=== PATIENT | female | born 1960 | race Caucasian/White ===

== ENCOUNTER 2019-06-29 12:01 | Outpatient (CLI) | payer MEDICARE, MEDICAID, SELFPAY | END 2019-06-29 12:02 | disposition home or self-care (01) | LOC: LAB 12:06 | PROVIDERS: Visit Provider Surgery | DX: R19.7 Diarrhea, unspecified (principal) | CPT/HCPCS: 83630; 87177; 87209; 87493; 87506 ==

== ENCOUNTER 2019-08-03 07:20 | Day surgery (SDC) | payer MEDICARE, MEDICAID, SELFPAY ==
[2019-08-02 09:33] VITALS: BMI 30.9
[2019-08-03 07:34] VITALS: BP 154/77; PULSE 78; RESP 18; TEMP 35.7; O2SAT 98
[2019-08-03] MEDS: sodium chloride 0.9% 1,000 ML 30 ML IV (07:47)
--- NOTE | 2019-08-03 08:13 | W.PM.OPSUD ---
Surgery/Procedure H&P Update DATE OF PROCEDURE: August 03, 2019 DATE H&P PERFORMED: 07/19/19 H&P UPDATE INFORMATION: I have reviewed H&P completed within last 30 days, I have examined patient prior to procedure and No changes to prior documentation PREOP DIAGNOSIS: Chronic diarrhea PLANNED PROCEDURE: Operation Date: 08/03/19 08:15 Proposed Procedures p Colonoscopy 62081 chronic diarrhe K52.9(Not Applicable) - Zafar Sales MD
--- NOTE | 2019-08-03 08:16 | ANES.PREANE2 ---
Pre-Anesthetic Assessment Pre-Anesthetic Assessment: Height/Weight: Height 1.63 m Weight 81.647 kg Temp Pulse Resp BP Pulse Ox 96.3 F L 78 18 154/77 98 08/03/19 07:34 08/03/19 07:34 08/03/19 07:34 08/03/19 07:34 08/03/19 07:34 Preop Diagnosis: Chronic diarrhea Proposed Procedure: Operation Date: 08/03/19 08:15 Proposed Procedures p Colonoscopy 99435 chronic diarrhe K52.9(Not Applicable) - Zafar Sales MD Was Beta Luis Enrique taken within 24 hours: N/A Last intake: Intake Last Liquid Date 08/02/19 Last Liquid Time 21:00 Last Solid Date 08/01/19 Social: Social History: Tobacco Packs per day: 2 Exam: Pre-Anes Outpt Exam: alert, oriented x 3 and regular rate & rhythm Additional Exam Findings (including area of procedure): decreased in bases Airway: Submandibular: WNL Cervical ROM: WNL MP: 2 Dentition: False History/ROS: No significant history except as noted and No significant complaints Pulmonary: Pulmonary: Asthma, COPD and SOB CV/HEM: CV/HEM: CAD and HTN : : None reported Hepatic: Hepatic: None reported GI: GI: None reported Metabolic: Metabolic: None reported Musc/skel: Musc/skel: None reported Neuropsych: Neuropsych: Anxiety Anesthetic Plan: ASA status: 4 Anesthesia: Anesthesia Evaluation and MAC Risk of > 500 ml blood loss (7ml/kg in children): No Meds/Allergies Current Medications: Current Medications Generic Name Dose Route Start Last Admin Trade Name Freq PRN Reason Stop Dose Admin Sodium Chloride 1,000 mls @ 30 ml s/hr 08/03/19 07:30 08/03/19 07:47 Sodium Chloride 0.9% IV 08/04/19 07:29 30 mls/hr .Q24H PRICE Administration PFSH Anesthesia PFSH: Medical History Asthma COPD (chronic obstructive pulmonary disease) Hypertension Sleep apnea Surgical History History of cholecystectomy History of colonoscopy History of hysterectomy History of knee surgery History of shoulder surgery History of tubal ligation S/P oophorectomy Family History Other Anesthesia complication Bleeding disorder Social History Smoking and tobacco status: current every day smoker Alcohol intake: never Lives independently: Yes Housing: House Marital status: Legally History of recent travel: No Data Anesthesia Cardiac Studies: No Data to Display
[2019-08-03 08:45] VITALS: BP 110/61; PULSE 75; RESP 16; TEMP 36.2; O2SAT 95
[2019-08-03 08:57] VITALS: BP 124/61; PULSE 73; RESP 20; TEMP 36.2; O2SAT 99
== END 2019-08-03 09:13 | disposition home or self-care (01) ==
PROVIDERS: Visit Provider Surgery
PROC: 0DJD8ZZ Inspection of Lower Intestinal Tract, Via Natural or Artificial Opening Endoscopic (ICD-10-PCS; CPT 45378; principal; 2019-08-03 08:15)
DX: K52.9 Noninfective gastroenteritis and colitis, unspecified (principal); K64.8 Other hemorrhoids; I25.10 Atherosclerotic heart disease of native coronary artery without angina pectoris; I10 Essential (primary) hypertension; J44.9 Chronic obstructive pulmonary disease, unspecified; G47.30 Sleep apnea, unspecified; F17.210 Nicotine dependence, cigarettes, uncomplicated
CPT/HCPCS: 12345; 45380; 82274; 83630; 87493; 87506; 88305; J2704; J7030

== ENCOUNTER 2019-12-27 07:12 | Outpatient (CLI) | payer MEDICARE, MEDICAID, SELFPAY ==
--- NOTE | 2019-12-27 07:16 | US_ITS ---
WS: [id number] THYROID ULTRASOUND REASON FOR EXAM: GOITER, DYSPHAGIA, VOICE CHANGE TECHNIQUE: Grayscale and Doppler ultrasound examination of the thyroid gland. FINDINGS: RIGHT: Right thyroid gland measures 4.2 cm x 1.3 cm x 1.9 cm. Right thyroid volume equals 5.5 ccm3. The echo texture of the right lobe of the thyroid is inhomogeneous. There are 2 small areas of sonolucency not felt to be significant, likely representing colloid cysts. No discrete nodule. LEFT: Left thyroid gland measures 3.4 cm x 1.4 cm x 1.6 cm. Left thyroid volume equals 3.9 ccm3. The echote xture of the left lobe of the thyroid is inhomogeneous. There is a small ovoid nodule in the mid to l ower left lobe of the thyroid it has a sonolucent margin and mixed echogenicity centrally. It measure s 7.3 x 4.5 x 6.8 mm. Thyroid isthmus: 0.6 mm. The echotexture of the isthmus of the thyroid is inhomogeneous. There is a s mall ovoid nodule within the isthmus measuring 5.1 x 3.0 x 4.7 mm. The ultrasound characteristics are identical to the nodule seen in the left lobe of the thyroid. Several lymph nodes are identified in the left neck and 1 lymph nodes identified on the right. These nodes are characterized by marrow short axis and very long, long axis with well-defined fat in the hi fernanda. US/US thyroid [id number] IMPRESSION: Multinodular goiter. Reasonable to follow the patient up in 6 months to reevalu ate the nodule in the isthmus an the left lobe of the thyroid. These nodules do not exhibit any malignant features. The lymph nodes identified, while somewhat prominent in long axis, have the navid earance of old reactive nodes.
== END 2019-12-27 07:13 | disposition home or self-care (01) ==
LOC: US 07:13
PROVIDERS: Visit Provider Family Medicine
DX: E04.9 Nontoxic goiter, unspecified (principal); R13.10 Dysphagia, unspecified; R49.9 Unspecified voice and resonance disorder; E04.2 Nontoxic multinodular goiter
CPT/HCPCS: 76536

== ENCOUNTER 2020-01-12 14:11 | Outpatient (CLI) | payer MEDICARE, MEDICAID, SELFPAY ==
--- NOTE | 2020-01-12 14:19 | MM_ITS ---
WS: [id number] SCREENING DIGITAL MAMMOGRAM WITH CAD HISTORY: SCREENING COMPARISON: 11/05/2013 Bilateral CC and MLO views submitted. Computer aided detection analyzed. Breast composition: There are scattered areas of fibroglandular density. No suspicious masses, microc alcifications or architectural distortion. MM/[place] [id number] IMPRESSION: BI-RADS: 1-Negative FOLLOW UP: 1 Year Follow-up
== END 2020-01-12 14:12 | disposition home or self-care (01) ==
LOC: RADSHAW 14:16
PROVIDERS: PCP Family Medicine; Visit Provider Family Medicine
DX: Z12.31 Encounter for screening mammogram for malignant neoplasm of breast (principal)
CPT/HCPCS: 77067

== ENCOUNTER 2020-05-05 15:38 | Outpatient (CLI) | payer MEDICARE, MEDICAID, SELFPAY ==
--- NOTE | 2020-05-05 15:56 | XR_ITS ---
WS: [id number] XR hip RT 2-3V wo/w pel* [id number] REASON FOR EXAM: RT HIP PAIN FINDINGS: Moderate narrowing of the right hip joint. Moderate spurring of the acetabular rim. No focal bony abnormality. No soft tissue abnormality. XR/XR hip RT 2-3V wo/w pel* [id number] IMPRESSION: Moderate changes of osteoarthritis in the right hip.
== END 2020-05-05 15:39 | disposition home or self-care (01) ==
LOC: RAD 15:44
PROVIDERS: PCP Family Medicine; Visit Provider Family Medicine
DX: G89.29 Other chronic pain (principal); M16.11 Unilateral primary osteoarthritis, right hip
CPT/HCPCS: 73502

== ENCOUNTER 2020-09-18 15:32 | Outpatient (CLI) | payer MEDICARE, MEDICAID, SELFPAY ==
[2020-09-18 16:10] LABS: Basophils # 0.1 10^3/uL (0.0-0.1); Basophils % 0.6 %; Eosinophils # 0.2 10^3/uL (0.0-0.8); Eosinophils % 1.5 %; Hematocrit 40.7 % (37.0-47.0); Hemoglobin 13.1 g/dL (11.5-15.3); Lymphocytes # 2.9 10^3/uL (0.8-4.8); Lymphocytes % 19.8 %; Mean Corpuscular HGB Conc 32.2 g/dL (30.0-36.0); Mean Corpuscular Hemoglobin 30.6 pg (28.0-34.0); Mean Corpuscular Volume 95.1 fL (81-99); Mean Platelet Volume 10.1 fL (7.4-10.4); Monocytes # 1.2 10^3/uL (0.2-0.9); Monocytes % 8.3 %; Neutrophils # 10.02 10^3/uL (1.8-7.7); Neutrophils % 69.4 %; Nucleated Red Blood Cells % 0 %; Platelet Count 442 10^3/cmm (130-400); Red Blood Count 4.28 10^6/uL (4.1-5.3); Red Cell Distribution Width 12.6 % (12.1-15.1); White Blood Count 14.4 10^3/uL (4.0-10.0)
[2020-09-18 16:43] LABS: Alanine Aminotransferase 11 U/L (0-33); Albumin Level 3.6 g/dL (3.5-5.2); Alkaline Phosphatase 92 IU/L (35-105); Anion Gap 15.6 (5-19); Aspartate Amino Transferase 12 U/L (0-32); Blood Urea Nitrogen 8 mg/dL (8-23); Calcium 9.2 mg/dL (8.5-10.5); Carbon Dioxide 26 mmol/L (22-29); Chloride 102 mmol/L (98-107); Globulin 3.5 g/dL (1.3-4.6); Glucose 104 mg/dL (65-115); Osmolality Calculated 289 mOsm/kg (285-295); Potassium 3.6 mmol/L (3.5-5.1); Sodium 140 mmol/L (136-145); Total Bilirubin 0.2 mg/dL (0.15-1.2); Total Protein 7.1 g/dL (6.6-8.7)
[2020-09-18 17:14] LABS: Erythrocyte Sedimentation Rate 42 mm/hr (0-15)
== END 2020-09-18 15:33 | disposition home or self-care (01) ==
PROVIDERS: PCP Family Medicine; Visit Provider Surgery
DX: K50.90 Crohn's disease, unspecified, without complications (principal); E88.81 Metabolic syndrome and other insulin resistance
CPT/HCPCS: 36415; 80053; 85025; 85651; 86140

== ENCOUNTER 2020-09-18 18:07 | Outpatient (CLI) | payer MEDICARE, MEDICAID, SELFPAY | END 2020-09-18 18:08 | disposition home or self-care (01) | PROVIDERS: PCP Family Medicine; Visit Provider Surgery | DX: R19.7 Diarrhea, unspecified (principal); K50.90 Crohn's disease, unspecified, without complications; E88.81 Metabolic syndrome and other insulin resistance | CPT/HCPCS: 36415; 80053; 83630; 85025; 85651; 86140; 87177; 87209; 87493; 87506 ==

== ENCOUNTER → 2020-10-05 11:36 | Outpatient (BNVA) | payer MEDICARE, MEDICAID, SELFPAY | PROVIDERS: PCP Family Medicine; Visit Provider Registered Nurse Neonatal Intensive Care | DX: M25.561 Pain in right knee (principal); M17.11 Unilateral primary osteoarthritis, right knee | CPT/HCPCS: 73562 ==

== ENCOUNTER 2020-10-06 11:50 | Outpatient (CLI) | payer MEDICARE, MEDICAID, SELFPAY ==
--- NOTE | 2020-10-06 13:00 | CT_ITS ---
WS: [id number] CT ABDOMEN PELVIS TECHNIQUE: Contrast-enhanced CT of the abdomen and pelvis with coronal and sagittal reformatted image s. CLINICAL INFORMATION: possible history of IBD COMPARISON: 09 15,015 DLP: 1411.[address] scans at [facility] use at least one of these dose optimization techniques: automat ed exposure control; mA and/or kV adjustment per patient size (includes targeted exams where dose is matched to clinical indication); or iterative reconstruction. FINDINGS: Diffuse fatty infiltration of the liver. Normal portal vein and splenic vein. Normal spleen. Small es ophageal hiatal hernia. Normal pancreas. Prior cholecystectomy. Adrenal glands are normal. Normal ric al parenchymal enhancement. No hydronephrosis. Normal portal vein and splenic vein. Small esophageal hiatal hernia. Lung bases are well aerated. Mild mucosal enhancement involving the left descending colon and sigmoid colon extending to the rectu m compatible with mild inflammatory colitis. Colon is otherwise normal in appearance. A few air-flui d levels in the transverse colon. No evidence of high-grade small or large bowel obstruction. No sign ificant bowel distention. Low-lying cecum extends into the pelvis. Small bowel is decompressed. Normal caliber abdominal aorta. No periaortic or retroperitoneal lymphadenopathy. No pelvic or inguin al lymphadenopathy. Grade 1 anterolisthesis L4 on L5. Prior hysterectomy. CT/CT abdomen pelvis w con* [id number] IMPRESSION: 1. Mild diffuse fatty infiltration the liver. Prior cholecystectomy. 2. Small esophageal hiatal hernia. 3. Mild mucosal enhancement involving the left descending colon and sigmoid co elie extending to the rectum compatible with mild inflammatory colitis. Colon is otherwise normal in appearance. 4. A few air-fluid levels in normal caliber transverse colon. No evidence of s mall or large bowel obstruction. 5. Low-lying cecum extends into the pelvis unchanged from previous. 6. Prior hysterectomy. 7. Grade 1 anterolisthesis L4 on L5 measuring 3.4 mm progressed since 2014.
[2020-10-06] MEDS: iohexol 300 mg/mL 100 mL Btl IV (14:16)
[2020-10-06] MEDS: iohexol 300 mg/mL 50 mL Btl VAGINAL (14:16)
== END 2020-10-06 11:51 | disposition home or self-care (01) ==
PROVIDERS: PCP Family Medicine; Visit Provider Internal Medicine
DX: R63.4 Abnormal weight loss (principal); K76.0 Fatty (change of) liver, not elsewhere classified; Z90.49 Acquired absence of other specified parts of digestive tract; K44.9 Diaphragmatic hernia without obstruction or gangrene; Z90.710 Acquired absence of both cervix and uterus
CPT/HCPCS: 74177

== ENCOUNTER 2020-10-11 11:37 | Outpatient (CLI) | payer MEDICARE, MEDICAID, SELFPAY ==
--- NOTE | 2020-10-11 11:46 | XR_ITS ---
WS: [id number] Exam: XR foot LT min 3V* [id number] Date/Time of Exam: 10/11/2020 11:46 AM Reason For Exam: SWELLING/KNOT IN L FOOT Comparison 09/07/2013. No acute fracture or dislocation. Plantar heel spur noted. No soft tissue foreign bodies are seen. XR/XR foot LT min 3V* [id number] IMPRESSION: 1. No fracture or other significant finding.
== END 2020-10-11 11:38 | disposition home or self-care (01) ==
PROVIDERS: PCP Family Medicine; Visit Provider Family Medicine
DX: M79.89 Other specified soft tissue disorders (principal)
CPT/HCPCS: 73630

== ENCOUNTER 2020-10-31 12:59 | Outpatient (CLI) | payer MEDICARE, MEDICAID, SELFPAY ==
--- NOTE | 2020-10-31 13:16 | MR_ITS ---
WS: [id number] MRI RIGHT KNEE NONCONTRAST TECHNIQUE: Axial PD, coronal PD fat sat, coronal PD, sagittal PD, and sagittal PD fat-sat images obta ined. CLINICAL INFORMATION: RIGHT KNEE PAIN COMPARISON: None. FINDINGS: Distal quadriceps and patella tendons are intact. Slightly hypertrophic patella. Small amount of prep atellar soft tissue edema. Tiny suprapatellar effusion. Normal ACL and PCL. Chronic thinning of the m edial and lateral meniscus. No acute appearing meniscal tears. Chronic intrasubstance signal abnormal ity involving the posterior horn medial meniscus. Medial and lateral collateral ligaments are normal in appearance. Moderate to advanced chondromalacia patella. Normal popliteal fossa. Tiny popliteal cyst measuring 1.9 x 1.0 CM. Moderate degenerative narrowing medial and lateral joint compartments with grade II to III chondromal acia. Small amount of edema in the posterior medial tibia likely degenerative. MR/MR knee RT wo con* [id number] IMPRESSION: 1. Normal ACL and PCL. 2. Chronic thinning of the medial and lateral meniscus. No acute appearing men iscal tears. 3. Advanced chondromalacia patella with a small suprapatellar effusion. Hypert rophic patella. 4. Moderate degenerative narrowing medial and lateral joint compartments with grade II-III chondromalacia 5. Tiny popliteal cyst Outbridge grading:
== END 2020-10-31 13:00 | disposition home or self-care (01) ==
PROVIDERS: PCP Family Medicine; Visit Provider Family Medicine
DX: M22.41 Chondromalacia patellae, right knee (principal); M71.21 Synovial cyst of popliteal space [Baker], right knee; M25.461 Effusion, right knee
CPT/HCPCS: 73721

== ENCOUNTER 2020-11-02 13:28 | Outpatient (CLI) | payer MEDICARE, MEDICAID, SELFPAY ==
--- NOTE | 2020-11-02 13:37 | US_ITS ---
WS: [id number] THYROID ULTRASOUND (TI-RADS CRITERIA) History: Follow-up nodules. COMPARISON: 05/12/2018 and 12/27/2019.. Technique: Ultrasound examination of the thyroid and adjacent soft tissues is performed. FINDINGS: Right lobe: 4.3 cm x 1.4 cm x 2.0 cm. Volume: 6.1 cm3. Ill-defined hypoechoic nodule in the inferior gland measures 6 x 6 x 4 mm. Very slightly increased in size since the prior study of 12/27/2019. There is a central calcification or colloid deposition. The re are a few additional scattered hypoechoic nodules. Lymph nodes: None. Left lobe: 3.8 cm x 1.5 cm x 1.7 cm. Volume: 5.0 cm3. Normal size and echotexture. No significant or dominant nodules are present. Colloid cyst in the mid gland measures 0.5 x 0.7 x 0.7 cm. Lymph nodes: None. Isthmus: 0.4 cm. NODULE: Labeled #3 Size: 0.5 x 0.8 x 0.9 cm Location: Isthmus Composition: Solid/almost completely solid (2) Echogenicity: Hypoechoic (2) Shape: Not taller than wide (0) Margins: Cannot determine (0) Echogenic foci: None (0) US/US thyroid [id number] Impression: TR4 Recommendation:Follow-up ultrasound in one, 2, 3 and 5 years. Follow-up is to p rovide continued evaluation of the isthmus nodule. The remaining nodules are le ss concerning. If thyroid nodule(s) change on follow-up examinations the recommendations will be altered as necessary.
== END 2020-11-02 13:29 | disposition home or self-care (01) ==
LOC: RAD 13:34
PROVIDERS: PCP Family Medicine; Visit Provider Family Medicine
DX: E04.2 Nontoxic multinodular goiter (principal)
CPT/HCPCS: 76536

== ENCOUNTER → 2021-01-15 15:13 | Outpatient (BNVA) | payer MEDICARE, MEDICAID, SELFPAY | PROVIDERS: PCP Family Medicine; Referring Provider Family Medicine; Visit Provider Specialist | DX: M17.0 Bilateral primary osteoarthritis of knee (principal) | CPT/HCPCS: 73560; 73565 ==

== ENCOUNTER 2021-01-19 06:00 | Outpatient (RCR) | payer MEDICARE, MEDICAID, SELFPAY | END 2021-02-14 23:00 | disposition home or self-care (01) | LOC: SPT 06:00 | PROVIDERS: PCP Family Medicine; Referring Provider Specialist; Visit Provider Specialist | DX: M25.561 Pain in right knee (principal); R26.89 Other abnormalities of gait and mobility | CPT/HCPCS: 97110; 97161 ==

== ENCOUNTER 2021-04-25 10:33 | Outpatient (CLI) | payer MEDICARE, MEDICAID, SELFPAY ==
--- NOTE | 2021-04-25 10:54 | MR_ITS ---
WS: [email or web address] MRI/MRCP OF THE ABDOMEN WITHOUT GADOLINIUM ENHANCEMENT TECHNIQUE: Thin and thick slab MRCP, Axial T2, Coronal MRCP, Axial Dual Echo, and Axial 2-D Fiesta imaging was obtained. Coronal 2-D Fiesta imaging. CLINICAL INFORMATION: clinically diagnosed EPI COMPARISON: CT October 06, 2020 FINDINGS: Mild hepatomegaly. No intrahepatic ductal dilatation. Prior cholecystectomy. Normal portal vein and s plenic vein. Normal spleen. No fluid collections in the gallbladder fossa. Small amount of susceptibi lity artifact from the cholecystectomy clips. Common bile duct is normal in appearance and tapers nor sunday distally. Common bile duct measuring 6.8 mm slightly prominent but normal postcholecystectomy. No evidence of choledocholithiasis. Normal pancreas. Normal pancreatic duct. Small esophageal hiatal hernia. Adrenal glands are normal. Normal renal parenchymal enhancement. Uppe r abdominal aorta is normal caliber. MR/MR MRCP [id number] Impression: 1. Prior cholecystectomy. 2. Slightly prominent common bile duct measuring 6.8 mm normal postcholecystec nidhi. No evidence of choledocholithiasis. Distal common bile duct tapers normal ly. 3. Pancreas is normal in appearance. 4. No hydronephrosis in either kidney. 5. No other significant findings.
== END 2021-04-25 10:34 | disposition home or self-care (01) ==
PROVIDERS: Visit Provider Internal Medicine
DX: K86.81 Exocrine pancreatic insufficiency (principal); Z90.49 Acquired absence of other specified parts of digestive tract
CPT/HCPCS: 74181

== ENCOUNTER → 2021-07-11 10:07 | Outpatient (BNVA) | payer MEDICARE, MEDICAID, SELFPAY | PROVIDERS: PCP Family Medicine; Visit Provider Specialist | DX: S83.241A Other tear of medial meniscus, current injury, right knee, initial encounter (principal); X58.XXXA Exposure to other specified factors, initial encounter; M17.11 Unilateral primary osteoarthritis, right knee | CPT/HCPCS: 99214 ==

== ENCOUNTER 2021-09-04 12:00 | Outpatient (CLI) | payer MEDICARE, MEDICAID, SELFPAY ==
--- NOTE | 2021-09-04 12:18 | US_ITS ---
WS: [email or web address] ULTRASOUND THYROID TECHNIQUE: Ultrasound of the thyroid. CLINICAL INFORMATION: MULTINODULE GOITER COMPARISON: November 02, 2020 FINDINGS: Thyroid: Right and left thyroid lobes are normal in size with heterogeneous echotexture Right thyroid lobe: 4.1 cm x 1.4 cm x 2.1 cm Previously described hypoechoic RIGHT inferior nodule not visualized today. Left thyroid lobe: 4.9 cm x 1.5 cm x 1.9 cm. Stable colloid cyst measuring 7 x 5 mm. Isthmus: 0.6 mm. Isthmus nodule Size: 0.9 x 0.6 x 0.8cm Location: Isthmus Composition: Solid/almost completely solid (2) Echogenicity: Hypoechoic (2) Shape: Not taller than wide (0) Margins: Cannot determine (0) Echogenic foci: None (0) Cervical lymphadenopathy: None. US/US thyroid [id number] IMPRESSION: Previously described isthmus nodule is unchanged. Recommend 12 month follow-up. November 02, 2020: TR4 Recommendation:Follow-up ultrasound in one, 2, 3 and 5 years as previously described. Follow-up is to provide continued evaluation of the isthmus nodule.
== END 2021-09-04 12:01 | disposition home or self-care (01) ==
LOC: RAD 12:00
PROVIDERS: PCP Family Medicine; Visit Provider Family Medicine
DX: E04.2 Nontoxic multinodular goiter (principal)
CPT/HCPCS: 76536

== ENCOUNTER → 2021-09-05 15:47 | Outpatient (BNVA) | payer MEDICARE, MEDICAID, SELFPAY | PROVIDERS: PCP Family Medicine; Visit Provider Specialist | DX: M17.11 Unilateral primary osteoarthritis, right knee (principal); S83.231D Complex tear of medial meniscus, current injury, right knee, subsequent encounter; X58.XXXD Exposure to other specified factors, subsequent encounter | CPT/HCPCS: 73560; 73565; 99214 ==

== ENCOUNTER → 2021-11-07 08:15 | Outpatient (BNVA) | payer MEDICARE, MEDICAID, SELFPAY | PROVIDERS: PCP Family Medicine; Visit Provider Specialist | DX: S83.231A Complex tear of medial meniscus, current injury, right knee, initial encounter (principal); X58.XXXA Exposure to other specified factors, initial encounter; M17.11 Unilateral primary osteoarthritis, right knee | CPT/HCPCS: 99213 ==

== ENCOUNTER 2021-12-06 10:26 | Outpatient (CLI) | payer MEDICARE, MEDICAID, SELFPAY ==
--- NOTE | 2021-12-06 10:15 | MR_ITS ---
WS: [id number] MRI RIGHT KNEE HISTORY: suspected medial meniscal tear COMPARISON: 10/31/2020 Anterior cruciate ligament: Intact. Posterior cruciate ligament: Intact. Medial collateral ligament: Intact. Posterior lateral corner structures: Intact. Medial menisci: Intact. Normal signal, size and shape. Lateral meniscus: Intact. Normal signal, size and shape. Extensor mechanism: Distal quadriceps tendon and patellar tendons are intact. Fluid and soft tissue: No joint effusion. Small Samson's cyst. Samson's cyst has decrease in size since the prior exam. Osseous and articular structures: Patellofemoral compartment: Moderate chondromalacia involving the patellar facets and the patellar em inence. Small amount of subchondral edema in the medial facet. Mild narrowing of the joint space. Medial compartment: Mild narrowing of the medial compartment. Mild thinning of the cartilage along th e tibial plateau. Slightly greater chondromalacia along the weightbearing surface of the femoral cond yle. Small marginal osteophytes. Lateral compartment: Mild narrowing of the joint space. 6 mm area of chondromalacia involving the keiry ghtbearing surface of the femoral condyle and tibial plateau. No interval change. MR/MR knee RT wo con* [id number] IMPRESSION: 1. No meniscal tear. 2. Moderate chondromalacia patella. No significant progression. 3. Mild narrowing of the medial and lateral compartments with mild chondromala christian. No progression. 4. No marrow edema or fracture. 5. Very small Samson's cyst.
== END 2021-12-06 10:27 | disposition home or self-care (01) ==
LOC: RAD 10:27
PROVIDERS: PCP Family Medicine; Visit Provider Specialist
DX: M17.11 Unilateral primary osteoarthritis, right knee (principal); S83.241A Other tear of medial meniscus, current injury, right knee, initial encounter; M22.41 Chondromalacia patellae, right knee; M71.21 Synovial cyst of popliteal space [Baker], right knee; X58.XXXA Exposure to other specified factors, initial encounter
CPT/HCPCS: 73721

== ENCOUNTER → 2021-12-10 14:16 | Outpatient (BNVA) | payer MEDICARE, MEDICAID, SELFPAY | PROVIDERS: PCP Family Medicine; Visit Provider Specialist | DX: M25.561 Pain in right knee (principal) | CPT/HCPCS: 99213 ==

== ENCOUNTER → 2022-02-28 09:27 | Outpatient (BNVA) | payer MEDICARE, MEDICAID, SELFPAY | PROVIDERS: PCP Family Medicine; Visit Provider Specialist | DX: M17.11 Unilateral primary osteoarthritis, right knee (principal) | CPT/HCPCS: 20610; J7318 ==

== ENCOUNTER → 2022-06-27 10:06 | Outpatient (BNVA) | payer MEDICARE, MEDICAID, SELFPAY | PROVIDERS: PCP Family Medicine; Visit Provider Specialist | DX: M17.11 Unilateral primary osteoarthritis, right knee (principal); S83.231D Complex tear of medial meniscus, current injury, right knee, subsequent encounter; X58.XXXD Exposure to other specified factors, subsequent encounter | CPT/HCPCS: 20610; J1100; J2795; J3301 ==

== ENCOUNTER → 2022-10-03 10:18 | Outpatient (BNVA) | payer MEDICARE, MEDICAID, SELFPAY | PROVIDERS: PCP Family Medicine; Visit Provider Specialist | DX: M17.11 Unilateral primary osteoarthritis, right knee (principal) | CPT/HCPCS: 20610; J7318 ==

== ENCOUNTER → 2022-10-23 09:00 | Outpatient (BNVA) | payer MEDICARE, MEDICAID, SELFPAY | PROVIDERS: PCP Family Medicine; Visit Provider Thoracic Surgery (Cardiothoracic Vascular Surgery) | DX: I96 Gangrene, not elsewhere classified (principal); L97.522 Non-pressure chronic ulcer of other part of left foot with fat layer exposed | CPT/HCPCS: 11042; 99213; A6248 ==

== ENCOUNTER → 2022-10-25 15:16 | Outpatient (BNVA) | payer MEDICARE, MEDICAID, SELFPAY | PROVIDERS: PCP Family Medicine; Visit Provider Thoracic Surgery (Cardiothoracic Vascular Surgery) | DX: I96 Gangrene, not elsewhere classified (principal); L97.522 Non-pressure chronic ulcer of other part of left foot with fat layer exposed | CPT/HCPCS: 97597; A6021; A6213 ==

== ENCOUNTER → 2022-10-30 13:07 | Outpatient (BNVA) | payer MEDICARE, MEDICAID, SELFPAY | PROVIDERS: PCP Family Medicine; Visit Provider Thoracic Surgery (Cardiothoracic Vascular Surgery) | DX: I96 Gangrene, not elsewhere classified (principal); L02.612 Cutaneous abscess of left foot | CPT/HCPCS: 11043; A6021; A6213 ==

== ENCOUNTER → 2022-11-06 10:20 | Outpatient (BNVA) | payer MEDICARE, MEDICAID, SELFPAY | PROVIDERS: PCP Family Medicine; Visit Provider Nurse Practitioner Family | DX: I96 Gangrene, not elsewhere classified (principal); L97.522 Non-pressure chronic ulcer of other part of left foot with fat layer exposed | CPT/HCPCS: 11042; 87070; 87077; 87186; A6021; A6210 ==

== ENCOUNTER → 2022-11-13 10:44 | Outpatient (BNVA) | payer MEDICARE, MEDICAID, SELFPAY | PROVIDERS: PCP Family Medicine; Visit Provider Thoracic Surgery (Cardiothoracic Vascular Surgery) | DX: I96 Gangrene, not elsewhere classified (principal); L97.512 Non-pressure chronic ulcer of other part of right foot with fat layer exposed | CPT/HCPCS: 11043 ==

== ENCOUNTER → 2022-11-15 08:18 | Outpatient (BNVA) | payer MEDICARE, MEDICAID, SELFPAY | PROVIDERS: PCP Family Medicine; Visit Provider Thoracic Surgery (Cardiothoracic Vascular Surgery) | DX: I96 Gangrene, not elsewhere classified (principal); L97.522 Non-pressure chronic ulcer of other part of left foot with fat layer exposed | CPT/HCPCS: 97597; A6021; A6210 ==

== ENCOUNTER → 2022-11-20 14:43 | Outpatient (BNVA) | payer MEDICARE, MEDICAID, SELFPAY | PROVIDERS: PCP Family Medicine; Visit Provider Thoracic Surgery (Cardiothoracic Vascular Surgery) | DX: I96 Gangrene, not elsewhere classified (principal); L97.522 Non-pressure chronic ulcer of other part of left foot with fat layer exposed | CPT/HCPCS: 97597; A6210 ==

== ENCOUNTER 2022-11-22 13:59 | Outpatient (CLI) | payer MEDICARE, MEDICAID, SELFPAY ==
--- NOTE | 2022-11-22 14:04 | MM_ITS ---
WS: [email or web address] BILATERAL 3D TOMOSYNTHESIS DIGITAL SCREENING MAMMOGRAPHY WITH CAD CLINICAL INFORMATION: SCREENING HISTORY: Screening mammogram. No current complaints. COMPARISON: 2020 TECHNIQUE: Bilateral CC and MLO views. FINDINGS: Scattered fibroglandular densities bilaterally. No suspicious focal mass, asymmetry, calcifications, or architectural distortion. No evidence of malignancy. IMPRESSION: MM/[place] [id number] BI-RADS: 1-Negative FOLLOW UP: 1 Year Follow-up Recommend return to annual screening mammography.
--- NOTE | 2022-11-22 14:05 | US_ITS ---
WS: [id number] THYROID ULTRASOUND HISTORY: MULTINODULAR GOITER COMPARISON: 09/04/2021 Right lobe: 1.1 cm x 1.6 cm x 4.3 cm (w x ap x l). Volume: 3.9 cm3. Normal size and echotexture. No significant are dominant nodules are present. Left lobe: 1.4 cm x 1.7 cm x 3.9 cm (w x ap x l). Volume: 4.5 cm3. Normal sized gland. Reidentified is a mixed echogenicity nodule in the mid thyroid measuring 9 x 7 x 6 mm. There is mild increased vascularity. Isthmus: 0.4 cm. IMPRESSION: 1. Mixed echogenicity nodule in the LEFT thyroid. Nodule remains less than a centimeter in diameter. This has slowly increased in size over the last few years. Recommend continued yearly evaluation. If this continues to increase in size greater than 1.5 cm ultrasound-guided biopsy should be obtained. 2. Negative RIGHT thyroid.
== END 2022-11-22 14:00 | disposition home or self-care (01) ==
LOC: RAD 13:59
PROVIDERS: PCP Family Medicine; Visit Provider Family Medicine
DX: Z12.31 Encounter for screening mammogram for malignant neoplasm of breast (principal)
CPT/HCPCS: 76536; 77063; 77067

== ENCOUNTER → 2022-11-27 13:06 | Outpatient (BNVA) | payer MEDICARE, MEDICAID, SELFPAY | PROVIDERS: PCP Family Medicine; Visit Provider Thoracic Surgery (Cardiothoracic Vascular Surgery) | DX: I96 Gangrene, not elsewhere classified (principal); L97.522 Non-pressure chronic ulcer of other part of left foot with fat layer exposed | CPT/HCPCS: 97597; A6212 ==

== ENCOUNTER 2022-12-04 14:45 | Outpatient (CLI) | payer MEDICARE, MEDICAID, SELFPAY ==
--- NOTE | 2022-12-04 14:52 | XR_ITS ---
WS: [id number] Left foot, 2 views, 12/03/2022 Clinical Data: Non healing wound/RO Osteo Comparison: Left foot, 10/11/2020 Findings: No fractures or dislocations are seen. No bone destruction or erosion is noted. The joint spaces and soft tissues are normal. The support boot obscures some detail. There is a plantar spur Impression: Negative for osteomyelitis.
== END 2022-12-04 14:46 | disposition home or self-care (01) ==
PROVIDERS: PCP Internal Medicine; Visit Provider Thoracic Surgery (Cardiothoracic Vascular Surgery)
DX: L97.522 Non-pressure chronic ulcer of other part of left foot with fat layer exposed (principal)
CPT/HCPCS: 73620; 97597; A6021

== ENCOUNTER → 2022-12-11 11:08 | Outpatient (BNVA) | payer MEDICARE, MEDICAID, SELFPAY | PROVIDERS: PCP Internal Medicine; Visit Provider Nurse Practitioner Family | DX: L97.522 Non-pressure chronic ulcer of other part of left foot with fat layer exposed (principal) | CPT/HCPCS: 97597 ==

== ENCOUNTER → 2022-12-18 10:19 | Outpatient (BNVA) | payer MEDICARE, MEDICAID, SELFPAY | PROVIDERS: PCP Internal Medicine; Visit Provider Thoracic Surgery (Cardiothoracic Vascular Surgery) | DX: I96 Gangrene, not elsewhere classified (principal); L97.522 Non-pressure chronic ulcer of other part of left foot with fat layer exposed | CPT/HCPCS: 97597; A6021 ==

== ENCOUNTER → 2022-12-25 10:49 | Outpatient (BNVA) | payer MEDICARE, MEDICAID, SELFPAY | PROVIDERS: PCP Internal Medicine; Visit Provider Thoracic Surgery (Cardiothoracic Vascular Surgery) | DX: I96 Gangrene, not elsewhere classified (principal); L97.522 Non-pressure chronic ulcer of other part of left foot with fat layer exposed | CPT/HCPCS: 97597; A6212 ==

== ENCOUNTER → 2023-01-01 11:00 | Outpatient (BNVA) | payer MEDICARE, MEDICAID, SELFPAY | PROVIDERS: PCP Internal Medicine; Visit Provider Thoracic Surgery (Cardiothoracic Vascular Surgery) | DX: I96 Gangrene, not elsewhere classified (principal); L97.522 Non-pressure chronic ulcer of other part of left foot with fat layer exposed | CPT/HCPCS: 97597; A6210 ==

== ENCOUNTER → 2023-01-08 08:53 | Outpatient (BNVA) | payer MEDICARE, MEDICAID, SELFPAY | PROVIDERS: PCP Internal Medicine; Visit Provider Thoracic Surgery (Cardiothoracic Vascular Surgery) | DX: I96 Gangrene, not elsewhere classified (principal); L97.522 Non-pressure chronic ulcer of other part of left foot with fat layer exposed | CPT/HCPCS: 97597 ==

== ENCOUNTER → 2023-01-15 13:03 | Outpatient (BNVA) | payer MEDICARE, MEDICAID, SELFPAY | PROVIDERS: PCP Internal Medicine; Visit Provider Nurse Practitioner Family | DX: Z09 Encounter for follow-up examination after completed treatment for conditions other than malignant neoplasm (principal); Z87.2 Personal history of diseases of the skin and subcutaneous tissue | CPT/HCPCS: 29445 ==

== ENCOUNTER → 2023-01-22 14:02 | Outpatient (BNVA) | payer MEDICARE, MEDICAID, SELFPAY | PROVIDERS: PCP Internal Medicine; Visit Provider Thoracic Surgery (Cardiothoracic Vascular Surgery) | DX: Z09 Encounter for follow-up examination after completed treatment for conditions other than malignant neoplasm (principal); Z87.2 Personal history of diseases of the skin and subcutaneous tissue | CPT/HCPCS: 99212 ==

== ENCOUNTER → 2023-01-31 10:09 | Outpatient (BNVA) | payer MEDICARE, MEDICAID, SELFPAY | PROVIDERS: PCP Internal Medicine; Visit Provider Nurse Practitioner | DX: M17.11 Unilateral primary osteoarthritis, right knee (principal) | CPT/HCPCS: 99214 ==

== ENCOUNTER → 2023-03-04 09:15 | Outpatient (BNVA) | payer MEDICARE, MEDICAID, SELFPAY | PROVIDERS: PCP Internal Medicine; Referring Provider Internal Medicine; Visit Provider Internal Medicine | DX: E04.1 Nontoxic single thyroid nodule (principal); R13.10 Dysphagia, unspecified | CPT/HCPCS: 99204 ==

== ENCOUNTER → 2023-03-12 10:10 | Outpatient (BNVA) | payer MEDICARE, MEDICAID, SELFPAY | PROVIDERS: PCP Internal Medicine; Visit Provider Podiatrist Foot & Ankle Surgery | DX: M21.622 Bunionette of left foot | CPT/HCPCS: 73630; 99203 ==

== ENCOUNTER 2023-03-25 10:46 | Outpatient (CLI) | payer MEDICARE, MEDICAID, SELFPAY ==
--- NOTE | 2023-03-25 11:00 | FL_ITS ---
WS: [email or web address] FL barium swallow modifd [id number] REASON FOR EXAM: Difficulty swallowing. FLUOROSCOPY TIME: 1min [id number] # OF SPOT FILMS: None FINDINGS: Patient was examined in the sitting upright lateral projection. The swallowing of multiple consistencies of barium was monitored fluoroscopically and video recorded. A detailed report of the swallowing will be rendered by the speech therapy department. IMPRESSION: Modified barium swallow as above.
== END 2023-03-25 10:47 | disposition home or self-care (01) ==
LOC: RAD 10:47
PROVIDERS: PCP Internal Medicine; Visit Provider Internal Medicine
DX: R13.10 Dysphagia, unspecified (principal)
CPT/HCPCS: 74230; 92611

== ENCOUNTER 2023-03-31 14:59 | Outpatient (CLI) | payer MEDICARE, MEDICAID, SELFPAY ==
--- NOTE | 2023-03-31 15:06 | US_ITS ---
WS: [id number] THYROID ULTRASOUND HISTORY: THYROID NODULE COMPARISON: 11/22/2022 Right lobe: 1.3 cm x 1.6 cm x 4.3 cm (w x ap x l). Volume: 4.3 cm3. Normal size and echotexture. No significant are dominant nodules are present. Left lobe: 1.4 cm x 1.2 cm x 3.6 cm (w x ap x l). Volume: 3.0 cm3. Normal sized gland. The previously described nodule in the mid gland is significantly decreased in si ze or completely resolved. There is a very tiny complex nodule in the mid gland measuring 4 x 3 x 2 m m which may be the collapsed nodule. There are no suspicious nodules today. Isthmus: 0.3 cm. IMPRESSION: 1. Previously described nodule in the mid LEFT thyroid is no longer evident. There is a tiny nodule w hich may be the previously described cystic nodule which has collapsed. There are no suspicious nodul es today.
== END 2023-03-31 15:00 | disposition home or self-care (01) ==
LOC: RAD 15:00
PROVIDERS: PCP Internal Medicine; Visit Provider Family Medicine
DX: E04.1 Nontoxic single thyroid nodule (principal)
CPT/HCPCS: 76536

== ENCOUNTER → 2023-04-23 10:40 | Outpatient (BNVA) | payer MEDICARE, MEDICAID, SELFPAY | PROVIDERS: PCP Internal Medicine; Visit Provider Podiatrist Foot & Ankle Surgery | DX: M21.622 Bunionette of left foot (principal) | CPT/HCPCS: 99214 ==

== ENCOUNTER → 2023-05-02 09:01 | Outpatient (BNVA) | payer MEDICARE, MEDICAID, SELFPAY | PROVIDERS: PCP Internal Medicine; Visit Provider Nurse Practitioner | DX: M17.11 Unilateral primary osteoarthritis, right knee; E04.1 Nontoxic single thyroid nodule; R13.10 Dysphagia, unspecified | CPT/HCPCS: 36415; 73560; 73565; 83516; 84439; 84443; 86376; 86800; 99213 ==

== ENCOUNTER 2023-05-02 10:13 | Outpatient (CLI) | payer MEDICARE, MEDICAID, SELFPAY ==
[2023-05-02 12:22] LABS: Free T4 Free Thyroxine 1.27 ng/dL (0.82-1.77); Thyroid Stimulating Hormone 1.76 uIU/mL (0.27-4.20)
[2023-05-05 08:05] LABS: Thyroid Peroxidase Antobodies 1 IU/mL (<9)
[2023-05-05 08:20] LABS: Thyroglobulin AB <1 IU/mL (< or = 1)
[2023-05-13 18:48] LABS: TSH Receptor Binding Antibody <1.00 IU/L (< OR = 2.00)
== END 2023-05-02 10:14 | disposition home or self-care (01) ==
LOC: LAB 10:14
PROVIDERS: PCP Internal Medicine; Visit Provider Internal Medicine
DX: E04.1 Nontoxic single thyroid nodule (principal); R13.10 Dysphagia, unspecified; M17.11 Unilateral primary osteoarthritis, right knee
CPT/HCPCS: 36415; 83516; 84439; 84443; 86376; 86800; 99213

== ENCOUNTER 2023-05-09 08:17 | Day surgery (SDC) | payer MEDICARE, MEDICAID, SELFPAY ==
[2023-05-09] VITALS (9 sets, daily range): BP systolic 127–179; BP diastolic 78–104; PULSE 83–95; RESP 14–20; TEMP 36.1–36.7; O2SAT 96–100; BMI 36.0
[2023-05-09] MEDS: sodium chloride 0.9% 1,000 ML 30 ML IV (08:44)
[2023-05-09] MEDS: scopolamine 1.5 Patch 1 PATCH TRANSDERMA (08:55)
[2023-05-09 09:06] LABS: Anion Gap 17.2 (5-19); Blood Urea Nitrogen 14 mg/dL (8-23); Calcium 9.2 mg/dL (8.5-10.5); Carbon Dioxide 24 mmol/L (22-29); Chloride 103 mmol/L (98-107); Creatinine Clr Calc Pharmacy 81.6337; Glomerular Filtration Rate 72.7 mL/min (90-130); Glucose 117 mg/dL (65-115); Osmolality Calculated 292 mOsm/kg (285-295); Potassium 4.2 mmol/L (3.5-5.1); Sodium 140 mmol/L (136-145)
--- NOTE | 2023-05-09 09:38 | P.ANESASSM_ITS ---
Pre-Anesthetic Assessment Height/Weight: Height 1.63 m Weight 95.254 kg Temp Pulse Resp BP Pulse Ox O2 Del Method 97 F L 95 16 140/78 98 Room Air 05/09/23 08:27 05/09/23 08:27 05/09/23 08:27 05/09/23 08:55 05/09/23 08:27 05/09/23 08:42 Preop Diagnosis: Left tailor's bunion Operation Date: 05/09/23 09:20 Proposed Procedures p Resection Metatarsal/ Resection of left fifth metatarsal head(Left) - Oliverio Aguilar DPM Familial anesthetic complications: None Was Beta Luis Enrique taken within 24 hours: N/A Was Clonidine taken within 24 hours: N/A Last intake: Intake Last Liquid Date 05/09/23 Last Liquid Time 07:00 Last Solid Date 05/08/23 Last Solid Time 23:30 Social Tobacco (encouraged smoking cessation) and No alcohol Exam alert, oriented x 3, clear to auscultation bilaterally and regular rate & rhythm Airway Mallampati: Class IV Dentition: false Comments: Comments: Large neck circumference, redudant submandibular tissue Pulmonary Asthma and Chronic Obstructive Pulmonary Disease Anesthetic Plan ASA status: 3 Anesthesia: MAC Risk of > 500 ml blood loss (7ml/kg in children): No Medications/Allergies Home Medications Medication Instructions Recorded Confirmed Last Taken Type acetaminophen 500 mg tablet 500 mg PO Q6H PRN Pain 06/28/19 05/08/23 05/08/23 History (Acetaminophen Extra Strength) alprazolam 0.25 mg tablet 0.25 mg PO BID 07/11/21 05/08/23 05/09/23 History fluoxetine 10 mg capsule (Prozac) 10 mg PO DAILY 07/11/21 05/08/23 05/08/23 History hinge brace #1 ea 01/31/23 05/02/23 Unknown Rx furosemide 20 mg tablet 0.1 mg PO DAILY 05/08/23 05/08/23 05/08/23 History lisinopril 20 mg tablet 20 mg PO DAILY 05/08/23 05/08/23 05/08/23 History Allergies Allergy/AdvReac Type Severity Reaction Status Date / Time NSAIDS (Non-Steroidal Allergy Intermediate ADR-Gastrointestinal Verified 05/09/23 08:24 Anti-Inflamma Upset Alpha-Gal Allergy ADR-Gastrointestinal Verified 05/09/23 08:24 ([id number]-Iqnft-3,3-Gala Upset sumatriptan [From Imitrex] Allergy ALGY-Difficulty Verified 05/09/23 08:24 Breathing trazodone Allergy ALGY-Difficulty Verified 05/09/23 08:24 Breathing Current Medications Generic Name Dose Route Start Last Admin Trade Name Freq PRN Reason Stop Dose Admin Sodium Chloride 1,000 mls @ 30 mls/hr 05/09/23 08:30 05/09/23 08:44 Sodium Chloride 0.9% IV 05/10/23 08:29 30 mls/hr .Q24H PRICE Administration PFSH Anesthesia Medical History Perianal abscess C. difficile colitis Sleep apnea COPD (chronic obstructive pulmonary disease) Asthma Hypertension Surgical History S/P oophorectomy History of knee surgery History of shoulder surgery History of cholecystectomy History of hysterectomy History of tubal ligation History of colonoscopy (08/03/19) Family History Other Anesthesia complication Bleeding disorder Social History Smoking and tobacco/nicotine status: current every day tobacco/nicotine user Alcohol intake: never Substance/Drug Use: never Lives independently: Yes Housing: House Marital status: Legally Data Anesthesia 05/09/23 08:40 BMP 05/09/23 08:40 Sodium 140 Potassium 4.2 Chloride 103 Carbon Dioxide 24 BUN 14 Creatinine 0.8 Glucose 117 H Calcium 9.2 Cardiac Studies: 2 No Data to Display
--- NOTE | 2023-05-09 09:40 | W.PM.OPSUD ---
Surgery/Procedure H&P Update DATE OF PROCEDURE: May 09, 2023 DATE H&P PERFORMED: 04/23/23 H&P UPDATE INFORMATION: I have reviewed H&P completed within last 30 days, I have examined patient prior to procedure and No changes to prior documentation PREOP DIAGNOSIS: Left tailor's bunion PRIMARY INDICATION FOR PROCEDURE: Left tailor's bunion PLANNED PROCEDURE: Operation Date: 05/09/23 09:20 Proposed Procedures p Resection Metatarsal/ Resection of left fifth metatarsal head(Left) - Oliverio Aguilar DPM
[2023-05-09] MEDS: ceFAZolin 2,000 MG in sodium chloride 0.9% (plus) 50 ML 100 MG IV (09:58)
[2023-05-09] MEDS: BUPivacaine 0.5% INJ 30 mL INJECTION (10:20)
--- NOTE | 2023-05-09 10:25 | W.PM.BPON ---
Date of Procedure: 05/02/23 Surgeon: Oliverio Aguilar DPM Funeral Service Practitioner/Embalmer(s): KATHY Procedure(s) performed: Floating osteotomy left fifth metatarsal Findings of the procedure(s): None Estimated blood loss: less than 2 mL Specimen(s) removed: No specimens Post-operative diagnosis: Tailor's bunion, left foot No complications with anesthesia or surgery.
--- NOTE | 2023-05-09 10:26 | P.OP_ITS ---
Operative Report Date of procedure: May 09, 2023 Pre-op diagnosis: Left foot pain M79.672, Tailor's bunion of left foot M21.622 Post-op diagnosis: Left foot pain M79.672, Tailor's bunion of left foot M21.622 Procedure done: Osteotomy left fifth metatarsal. CPT code 15374 Implants: 4-0 Vicryl, 4-0 nylon Specimens removed/disposition: None Pathology: None Surgeon: Oliverio Aguilar DPM [place] Chalker: Micky Estimated blood loss: 2 7 IV fluids: None Urine output: None Complications: None Brief History: Ms. Lorenzo is an established 62 year old female patient here for follow up of her left foot pain. She states that her pain remains the same. She has a bony prominence at her left lateral forefoot that is unresponsive to wide accommodative shoes, padding, spacing, stretching and anti-inflammatories both topically and orally, states she has pain with standing and walking and everyday activities and would like to discuss surgical options as the pain is sharp and prevents her from increasing her activities. X-ray left foot shows increased fourth intermetatarsal angle and lateral curvature of the fifth metatarsal left foot. Patient has a tailor's bunion with bony prominence at the fifth metatarsal head left foot unresponsive to conservative care. I reviewed at length with the patient, the risks, potential complications, benefits, alternatives, expectations, and typical outcomes associated with the surgery. The risks and potential complications were explained in detail, including but not limited to infection, wound dehiscence or soft tissue complications, bleeding and hematoma, chronic edema, neuritis or nerve damage producing numbness or chronic pain, CRPS, failure to relieve pain or worsening pain, thick / painful / unsightly scar, limited motion / stiffness, malposition, delayed union, malunion, or nonunion, fracture, reaction to implants, anesthetic complications, venous thromboembolism, and deformity recurrence. I discussed the notion of no regrets with the patient as it pertains to complications and outcomes. The patient seemed to understand the nature of the proposed care and required convalescence. They asked appropriate questions, answered to their satisfaction. They are aware no guarantees can be made as to a satisfactory outcome and they understand there may be other possible unforeseen complications or outcomes not listed here that will be treated accordingly if they arise. There were no written or implied guarantees given to the patient. They gave informed consent to proceed. Procedure: Under mild sedation the patient was brought to the operating room and remained on the gurney in supine position. A timeout was performed. Anesthesia was then administered by the anesthesia service. Local anesthesia was injected by myself consisting of 20 cc of one-to-one mixture 1% lidocaine and 0.5% Marcaine plain in a reverse Key block fashion to the left foot. Well-padded pneumatic tourniquet was applied to the left ankle. Left lower extremity was scrubbed, prepped and draped utilizing normal aseptic technique and exanguinated with an Esmarch bandage followed by inflation of tourniquet at 250 mmHg. Attention was directed to the left foot where tailor's bunion and prominent fifth metatarsal head was appreciated. A dorsal lateral incision was performed directly over the distal left fifth metatarsal with dissection carried down to periosteum utilizing sharp and blunt technique. Care was taken to retract and preserve neurovascular and tendinous structures. All bleeders were ligated and cauterized as necessary. Distal diaphyseal osteotomies performed of the left fifth metatarsal, left fifth metatarsal was translated dorsally and medially in a more corrected position to reduce the angular deformity in all 3 planes. The incision was then irrigated with copious amounts of sterile skin solution and closed in a layered fashion. Subcutaneous tissue reapproximated 4-0 Vicryl and skin with 4-0 nylon. Incision was dressed with Adaptic, sterile 4 x 4's, Kerlix and Prasanna wrap followed by application of a postop shoe to the left foot. Tourniquet was deflated and a prompt hyperemic response was noted to the distal digits of the left foot. Patient tolerated the procedure and anesthesia well and was transferred to the PACU with vital signs stable and vascular status intact. Following a period of postoperative monitoring she will be discharged home was given at home care instructions, scheduled follow-up and my cell phone number to contact with any postoperative questions or concerns.
[2023-05-09] MEDS: HYDROcodone-acetaminophen 10-325 mg Tablet 1 TAB PO (11:04)
--- NOTE | 2023-05-09 11:30 | ANE.PACU2 ---
Inpatient post-anesthesia follow up: Airway intact: Yes Vital signs: Temperature 98 F Pulse Rate 83 Respiratory Rate 18 Blood Pressure 159/92 Pulse Oximetry 97 Oxygen Delivery Me thod Room Air Oxygen Flow Rate 6 Fraction of Inspir ed Oxygen Hydration adequate: Yes Nausea and vomiting: No Pain level: 1 Mental status: Baseline
== END 2023-05-09 11:32 | disposition home or self-care (01) ==
PROVIDERS: Anesthesiology; PCP Internal Medicine; Visit Provider Podiatrist Foot & Ankle Surgery
PROC: (CPT 28140; principal; 2023-05-09 09:10)
DX: M21.622 Bunionette of left foot (principal); J44.9 Chronic obstructive pulmonary disease, unspecified; G47.30 Sleep apnea, unspecified; I10 Essential (primary) hypertension; F17.210 Nicotine dependence, cigarettes, uncomplicated
CPT/HCPCS: 28308; 36415; 76000; 80048; J0690; J2704; J3490; J7030

== ENCOUNTER → 2023-05-22 14:16 | Outpatient (BNVA) | payer MEDICARE, MEDICAID, SELFPAY | PROVIDERS: PCP Internal Medicine; Visit Provider Podiatrist Foot & Ankle Surgery | DX: M21.622 Bunionette of left foot (principal) | CPT/HCPCS: 99024 ==

== ENCOUNTER → 2023-05-27 11:31 | Outpatient (BNVA) | payer MEDICARE, MEDICAID, SELFPAY | PROVIDERS: PCP Internal Medicine; Visit Provider Internal Medicine | DX: E04.1 Nontoxic single thyroid nodule (principal); R13.10 Dysphagia, unspecified; Z87.19 Personal history of other diseases of the digestive system | CPT/HCPCS: 99214 ==

== ENCOUNTER → 2023-06-02 09:07 | Outpatient (BNVA) | payer MEDICARE, MEDICAID, SELFPAY | PROVIDERS: PCP Internal Medicine; Visit Provider Podiatrist Foot & Ankle Surgery | DX: Z98.890 Other specified postprocedural states (principal); S83.231D Complex tear of medial meniscus, current injury, right knee, subsequent encounter; X58.XXXD Exposure to other specified factors, subsequent encounter; M17.11 Unilateral primary osteoarthritis, right knee | CPT/HCPCS: 99024; 99213 ==

== ENCOUNTER 2023-07-01 15:10 | Outpatient (RCR) | payer MEDICARE, MEDICAID, SELFPAY | END 2023-07-10 23:59 | disposition home or self-care (01) | LOC: SST 15:10 | PROVIDERS: Visit Provider Internal Medicine | DX: R13.10 Dysphagia, unspecified (principal) | CPT/HCPCS: 92526; 92610 ==

== ENCOUNTER 2023-07-25 08:21 | Outpatient (CLI) | payer MEDICARE, MEDICAID, SELFPAY ==
--- NOTE | 2023-07-25 08:22 | MR_ITS ---
WS: [id number] MRI RIGHT KNEE ARTHROGRAM TECHNIQUE: Axial PD, coronal PD fat sat, coronal PD, sagittal PD, and sagittal PD fat-sat images obta ined. CLINICAL INFORMATION: S83.231D - Complex tear of medial meniscus, current injur... COMPARISON: MRI 2021 FINDINGS: Distal quadriceps and patella tendons are intact. Hypertrophic patella. Moderate tricompartmental art hritis. ACL and PCL appear intact. Mild thinning of the ACL with mucoid degeneration. Normal medial a nd lateral patellar retinaculum. Grade 3 chondromalacia patella. Small lobulated popliteal cyst measu ring 2.5 x 2.9 cm. Chronic thinning of the medial and lateral meniscus. Prior medial meniscectomy. No acute appearing me niscal tears. The fibula is normal in appearance. Grade III chondromalacia medial and lateral joint c ompartments. MR/MR knee RT wo/w con [id number] IMPRESSION: 1. Moderate tricompartment arthritis with grade 3 chondromalacia. This is wors e in the patella. 2. Mucoid degeneration of the ACL has progressed compared to previous. ACL and PCL appear intact. 3. Chronic thinning of the medial and lateral meniscus. Prior history of parti al medial meniscectomy. No acute appearing meniscal tears. 4. Medial and lateral collateral ligaments appear intact. 5. Small lobulated popliteal cyst. 6. No other acute findings. Outbridge grading: grade III: partial-thickness cartilage loss with focal ulcer ation
--- NOTE | 2023-07-25 08:30 | IR_ITS ---
WS: [id number] RIGHT KNEE ARTHROGRAM Fluoroscopic guided right knee arthrogram. CLINICAL INFORMATION: pain COMPARISON: None. TECHNIQUE: The procedure including risks, benefits, and complications were discussed with the patient , who agreed to proceed. Timeout was performed. Using sterile technique, the patient was prepped and draped in the usual sterile fashion. After 1% lidocaine injection using fluoroscopic guidance, a 22-g auge spinal needle was advanced into the RIGHT patellofemoral compartment. Subsequently 40 cc of a mi xture containing 5 cc 1% lidocaine, 20 cc normal saline, 15 cc Omnipaque 240, and 0.2 cc gadolinium w as administered. No immediate complications. FLUOROSCOPY TIME: 0min [id number] # of spot films: 2 IR/[place] [id number] IMPRESSION: Uncomplicated right knee fluoroscopic guided arthrogram. MRI to follow.
[2023-07-25] MEDS: iohexol 240 mg/mL 50 mL Btl 15 ML INTRA-ARTI (11:55)
[2023-07-25] MEDS: gadobenate dimeglumine 20 mL vial IV (14:53)
== END 2023-07-25 08:22 | disposition home or self-care (01) ==
LOC: RAD 08:21
PROVIDERS: PCP Internal Medicine; Visit Provider Specialist
DX: S83.231D Complex tear of medial meniscus, current injury, right knee, subsequent encounter (principal); M17.11 Unilateral primary osteoarthritis, right knee; M71.21 Synovial cyst of popliteal space [Baker], right knee; Z98.890 Other specified postprocedural states; M94.29 Chondromalacia, multiple sites; M23.611 Other spontaneous disruption of anterior cruciate ligament of right knee; X58.XXXD Exposure to other specified factors, subsequent encounter
CPT/HCPCS: 27369; 73723; 77002; A9577; Q9966

== ENCOUNTER → 2023-08-13 10:15 | Outpatient (BNVA) | payer MEDICARE, MEDICAID, SELFPAY | PROVIDERS: PCP Internal Medicine; Visit Provider Nurse Practitioner | DX: M25.569 Pain in unspecified knee (principal) | CPT/HCPCS: 36415; 80053; 81003; 85025 ==

== ENCOUNTER → 2023-08-27 15:54 | Outpatient (CLI) | payer MEDICARE, MEDICAID, SELFPAY ==
--- NOTE | 2023-08-27 16:00 | CT_ITS ---
WS: [id number] CT RIGHT KNEE, NONCONTRAST [facility] TECHNIQUE: Noncontrast CT of the RIGHT knee to include the RIGHT hip and ankle. CLINICAL INFORMATION: M17.11 - Unilateral primary osteoarthritis, right knee DLP: 906.[address] scans at [facility] use at least one of these dose optimization techniques: automated e xposure control; mA and/or kV adjustment per patient size (includes targeted exams where dose is matc hed to clinical indication); or iterative reconstruction. FINDINGS: Moderate tricompartmental arthritis. Degenerative arthritis sacroiliac joints. Mild degenerative narr owing both hips. Hypertrophic patella. Osteopenia. No significant joint effusion. Benign patchy scler osis bilateral distal femurs CT/CT knee RT [facility] [id number] IMPRESSION: Images obtained for preoperative purposes.
== END | disposition home or self-care (01) ==
LOC: RAD 15:53
PROVIDERS: PCP Internal Medicine; Visit Provider Nurse Practitioner
DX: Z01.818 Encounter for other preprocedural examination (principal); M17.11 Unilateral primary osteoarthritis, right knee; M79.4 Hypertrophy of (infrapatellar) fat pad; M85.80 Other specified disorders of bone density and structure, unspecified site
CPT/HCPCS: 73700

== ENCOUNTER 2023-09-04 09:59 | Observation (INO) | payer MEDICARE, MEDICAID, SELFPAY ==
[2023-09-04] VITALS (24 sets, daily range): BP systolic 108–177; BP diastolic 63–97; PULSE 76–89; RESP 14–121; TEMP 36.1–36.9; O2SAT 94–100
[2023-09-04] MEDS: sodium chloride 0.9% 1,000 ML 30 ML IV (06:20)
[2023-09-04] MEDS: acetaminophen 1,000 MG/100 ML PIGGYBACK 400 MG IV (06:21)
--- NOTE | 2023-09-04 06:45 | W.PM.OPSUD ---
Surgery/Procedure H&P Update DATE OF PROCEDURE: September 04, 2023 DATE H&P PERFORMED: 08/27/23 H&P UPDATE INFORMATION: I have reviewed H&P completed within last 30 days, I have examined patient prior to procedure, No changes to prior documentation and H&P is in [facility] EMR on date indicated PLANNED PROCEDURE: Operation Date: 09/04/23 07:00 Proposed Procedures p Barney Robot Total Knee Arthroplasty - RIGHT(Right) - Dina Martinez MD Related Problem List Diagnoses (1) Primary osteoarthritis of right knee:
--- NOTE | 2023-09-04 06:54 | ANES.PREANE2 ---
Pre-Anesthetic Assessment Height/Weight: Height 1.63 m Weight 91.626 kg Temp Pulse Resp BP Pulse Ox O2 Del Method 97 F L 85 16 167/80 96 Room Air 09/04/23 06:08 09/04/23 06:08 09/04/23 06:08 09/04/23 06:08 09/04/23 06:08 09/04/23 06:08 Operation Date: 09/04/23 07:00 Proposed Procedures p Barney Robot Total Knee Arthroplasty - RIGHT(Right) - Dina Martinez MD Familial anesthetic complications: None Was Beta Luis Enrique taken within 24 hours: N/A Was Clonidine taken within 24 hours: N/A Last intake: Intake Last Liquid Date 09/03/23 Last Liquid Time 21:00 Last Solid Date 09/04/23 Last Solid Time 21:00 Social Tobacco and No alcohol Exam alert, oriented x 3, clear to auscultation bilaterally and regular rate & rhythm Airway Mallampati: Class IV Dentition: false Pulmonary Asthma and Chronic Obstructive Pulmonary Disease Metabolic Morbid Obesity Anesthetic Plan ASA status: 3 Anesthesia: Regional (specify below) Risk of > 500 ml blood loss (7ml/kg in children): No Medications/Allergies Home Medications Medication Instructions Recorded Confirmed Last Taken Type acetaminophen 500 mg tablet 500 mg PO Q6H PRN Pain 06/28/19 09/04/23 09/03/23 History (Acetaminophen Extra Strength) fluoxetine 10 mg capsule (Prozac) 10 mg PO DAILY 07/11/21 09/04/23 09/03/23 History hinge brace #1 ea 01/31/23 08/27/23 Unknown Rx lisinopril 20 mg tablet 20 mg PO DAILY 05/08/23 09/04/23 09/03/23 History alprazolam 0.25 mg tablet 0.25 mg PO BID PRN Anxiety 08/27/23 09/04/23 09/01/23 History bupropion HCl 100 mg tablet 100 mg PO DAILY 08/27/23 09/04/23 09/03/23 History albuterol sulfate 90 mcg/actuation 2 inh inhalation QID PRN Shortness 09/03/23 09/04/23 09/02/23 History aerosol inhaler (Ventolin HFA) Of Breath Allergies Allergy/AdvReac Type Severity Reaction Status Date / Time NSAIDS (Non-Steroidal Allergy Intermediate ADR-Gastrointestinal Verified 09/03/23 14:32 Anti-Inflamma Upset Alpha-Gal Allergy ADR-Gastrointestinal Verified 09/03/23 14:32 ([id number],3-Gala Upset sumatriptan [From Imitrex] Allergy ALGY-Difficulty Verified 09/03/23 14:32 Breathing trazodone Allergy ALGY-Difficulty Verified 09/03/23 14:32 Breathing Current Medications Generic Name Dose Route Start Last Admin Trade Name Freq PRN Reason Stop Dose Admin Sodium Chloride 1,000 mls @ 30 mls/hr 09/04/23 06:00 09/04/23 06:20 Sodium Chloride 0.9% IV 09/05/23 05:59 30 mls/hr .Q24H PRICE Administration PFSH Anesthesia Medical History Perianal abscess C. difficile colitis Sleep apnea COPD (chronic obstructive pulmonary disease) Asthma Hypertension Surgical History S/P oophorectomy History of knee surgery History of shoulder surgery History of cholecystectomy History of hysterectomy History of tubal ligation History of colonoscopy (08/03/19) Family History Other Anesthesia complication Bleeding disorder Social History Smoking and tobacco/nicotine status: current every day tobacco/nicotine user Alcohol intake: never Substance/Drug Use: never Lives independently: Yes Housing: House Marital status: Legally Data Anesthesia Cardiac Studies: No Data to Display
--- NOTE | 2023-09-04 06:56 | ANES.PROC ---
Anesthesia Procedures Procedure/Date: 09/04/23 Nerve Block ^: Nerve Block 1: Main Anesthesia: spinal anesthesia block Time Out Performed: Yes Consent: requested by attending/covering physician, from patient, from other, risks and benefits reviewed and patient agrees to proceed Nerve block location: adductor canal (R) Anesthesia monitors applied: pulse oximetry, EKG, BP cuff and oxygen Nerve block position: supine Anesthetic Used: ropivicaine 0.5% (30 ml) and with decadron (4 mg) Ultrasound used to: recognize landmarks and visualize and ID femerol nerve Nerve Stimulator Used?: No Interscalene/Femoral BLK: 4 stimuplex 21 g needle used for position and inplane approach, visualize local anesthetic spread and no vascular puncture identified Injection: neg aspiration of heme Patient Tolerated Procedure: well Complications: none
[2023-09-04] MEDS: ceFAZolin 2,000 MG in sodium chloride 0.9% (plus) 50 ML 100 MG IV (07:00)
[2023-09-04] MEDS: tranexamic acid 1,000 mg/10mL SDV 1000 MG IV (07:35)
[2023-09-04] MEDS: BUPivacaine liposome 13.3 mg/mL SDV 20 mL 266 MG XX (08:06)
[2023-09-04] MEDS: BUPivacaine 0.5% INJ 30 mL XX (08:06)
[2023-09-04] MEDS: ceFAZolin 1,000 mg SDV 2000 MG IRRIGATION (08:09)
[2023-09-04] MEDS: vancomycin 1,000 MG SDV 1000 MG XX (08:11)
--- NOTE | 2023-09-04 10:00 | XRR_ITS ---
PROCEDURE INFORMATION: Exam: XR Right Knee Exam date and time: 09/04/2023 10:05 AM Age: 63 years old Clinical indication: Device placement; Joint replacement hardware; Prior surgery; Surgery date: Post-operative (0-2 days); Surgery type: Right total knee arthroplasty TECHNIQUE: Imaging protocol: Radiologic exam of the right knee. Views: 1 or 2 views. COMPARISON: CT knee RT [facility] [id number] 08/27/2023 4:00 PM FINDINGS: Bones/joints: There are postoperative changes status post right knee replacement. Components appear to be in anatomic alignment. There is air within the joint from recent surgery. Soft tissues: Normal. XR/XR knee RT 1-2V [id number] IMPRESSION: 1. Postoperative changes status post right knee replacement
--- NOTE | 2023-09-04 10:08 | PM.OP ---
Operative Report Date of procedure: September 04, 2023 Pre-op diagnosis: Degenerative osteoarthritis of the right knee with slight varus deformity and slight hyperextension Post-op diagnosis: Degenerative osteoarthritis of the right knee with slight varus deformity and slight hyperextension Post-op findings: Severe degenerative osteoarthritis of the right knee with complete denudement of cartilage. Slight hyperextension. Procedure done: Right total knee arthroplasty with Barney guidance Implants: The Jackson total knee system with a size 4 triathlon beaded cruciate retaining femur right, a triathlon Tritanium tibial baseplate size 4, a triathlon X3 tibial bearing CS insert size 4 X 9 mm and a triathlon tritanium X3 asymmetric patella size 32 x 10 mm Specimens removed/disposition: Bone, disposed of Surgeon: Dina Martinez MD Mobile Application Developer: Odette Dobbs, nurse practitioner, who services were necessary for positioning, exposure, implantation, closure, and completion of the surgical procedure. Anesthesia: Spinal (With MAC and preoperative adductor block, ASA 3) Estimated blood loss (mL): 50 Tourniquet time (min): 0 (No Whaley) IV fluids (mL): 800 Urine output (mL): 200 Complications: None Condition: stable Disposition: PACU (Then to floor for postoperative rehabilitation and pain management) Brief History: This 63-year-old woman presents today for right total knee arthroplasty. The patient was seen preoperatively and states that she was having significant limitations in her activities of daily living. Patient had cortisone and viscosupplementation injections, and they stopped being of any benefit for her. Having exhausted appropriate conservative therapies, the patient wished to proceed with operative intervention. She was noted to have a meniscus tear, but this was degenerative in nature. In addition to the injections, she had also tried oral anti-inflammatories, bracing, activity modification, and weight loss. None of these were of benefit. In the office, consents were signed and questions were answered. The patient was scheduled for the above procedure. Procedure: The patient was brought to the operating theater, and after undergoing spinal anesthesia with MAC, ASA 3, the right lower extremity was prepped with Dura-Prep and draped in usual fashion following placement of a tourniquet high on the leg. The leg was then draped free.? Tourniquet was not elevated during the case.? A surgical pause was performed, and at the time of the surgical pause, we confirmed the site and side of surgery. Additionally, we confirmed the appropriate and timely administration of preoperative antibiotics, Ancef 2 g.? The availability of equipment was confirmed, and the patient's identity was verbalized as well. Following the surgical pause, an incision was made centering over the patella continuing proximally and distally as necessary to allow access to the knee joint. Dissection continued through skin and soft tissues using a scalpel. Hemostasis was obtained using electrocautery. The skin incision was followed by a median parapatellar arthrotomy. The leg was extended and the patella was able to be displaced laterally.? Appropriate arrays and markers were placed in appropriate position for use of the Barney.? Preoperative planning had been accomplished and was discussed in detail with the [facility] escrow representative.? Intraoperative mapping of the femur and tibia was accomplished after the arrays and checkpoints were placed. Once we had accomplished the Barney mapping, we began the appropriate resections for placement of the prosthesis.? The plan was for a cruciate retaining right total knee arthroplasty. Once appropriate mapping had been accomplished retraction was established using manual retraction by surgical technicians and also the Barney leg positioner and retractors.? The knee was evaluated.? Appropriate bone resection was accomplished using the Barney.? The femur was sized to a size 4.? Following femoral cuts, attention was directed to the tibia.? Osteophytes were removed prior to this portion of the procedure.? We had performed a medial release at the beginning of the procedure to allow for placement of the array and to assist in balancing the knee.? Proximal tibia was evaluated, and it was felt that appropriate size for the tibia was a size 4.? Rim fit was accomplished with the size 4. A trial reduction was accomplished after osteophytes have been removed as well as the medial and lateral menisci.? We had removed the anterior cruciate ligament at the beginning of the case and preserved the posterior cruciate ligament.? Trial reduction was accomplished with a size 4 femoral cruciate retaining component, a size 4 tibial tray initially with a 9 mm. Alignment was felt to be appropriate as well.? Trial components were removed after the femur had been drilled.? Prior to removal of the tibial tray which had been pinned in position with appropriate rotation as determined by the Barney plan, we broached the tibia.? All trial components were removed, and the wound was irrigated.? Plans were made for insertion of the prosthetic components.? Prior to this, the patella was manually prepared.? After resection of the articular surface of the patella with the jigging system, it was measured and measured a 32 mm patella.? We resected approximately 8 mm of patella.? Patellar height was restored with the patellar component. Preparation of the bone was accomplished with irrigating and drying. The tibia was then impacted into position followed by the femur followed by the patella. The CS tibial insert was placed prior to placement of the femoral component. The patella was also impacted into position. Exparel was injected about the components deep and superficially.? The knee was then copiously irrigated with betadine and saline and suctioned dry. Attention was then directed to closure. Closure was accomplished with 0 Vicryl in the fascial tissues.? The suture line of 0 Vicryl was supplemented with strata fix, #1, with a running stitch from proximal to distal and a second running stitch from distal to proximal.? This was followed by Surgiflo and vancomycin powder.? Following this, a 2-0 STRATAFIX was used in the subcutaneous tissues, and the skin was closed with 3-0 Strata fix.? Care was taken to assure an excellent subcutaneous as well as skin closure.? A sterile dressing was then placed consisting of Dermabond Prineo, OpSite, ABD, sterile soft roll, and an Prasanna wrap including over the foot. The patient was returned the Recovery Room in a satisfactory condition. X-rays were obtained and reviewed there.? The patient will be discharged to the floor for postoperative rehabilitation and pain management. Related Problem List Diagnoses (1) Primary osteoarthritis of right knee:
--- NOTE | 2023-09-04 11:10 | ANE.PACU2 ---
Inpatient post-anesthesia follow up: Airway intact: Yes Vital signs: Temperature 97.8 F Pulse Rate 79 Respiratory Rate 16 Blood Pressure 143/87 Pulse Oximetry 96 Oxygen Delivery Me thod Room Air Oxygen Flow Rate 6 Fraction of Inspir ed Oxygen Hydration adequate: Yes Nausea and vomiting: No Pain level: 1 Mental status: Baseline
[2023-09-04] MEDS: oxyCODONE 5 mg IR Tab/Cap PO ×3 (12:27→22:13)
[2023-09-04] MEDS: chlorhexidine gluconate 0.12% Btl 473 mL 30 ML MUCOUS MEM ×3 (14:15→22:11)
[2023-09-04] MEDS: ceFAZolin 2,000 mg SDV 2000 MG IVP ×2 (14:16→22:10)
[2023-09-04] MEDS: acetaminophen 500 mg Tablet 1000 MG PO ×2 (14:16→22:11)
[2023-09-04] MEDS: iron polysaccharide complex 150 mg Capsule PO (17:52)
[2023-09-04] MEDS: calcium carbonate 500 mg Chew Tablet 1000 MG PO (17:52)
[2023-09-04] MEDS: mupirocin oint 22 gm 1 APPLIC NASAL (17:52)
[2023-09-04] MEDS: sennosides-docusate Tablet 2 TAB PO (17:52)
[2023-09-05 00:57] VITALS: BP 155/90; PULSE 88; RESP 17; TEMP 36.6; O2SAT 97
[2023-09-05] MEDS: HYDROcodone-acetaminophen 10-325 mg Tablet 1 TAB PO ×4 (01:12→15:25)
[2023-09-05 04:22] VITALS: BP 144/80; PULSE 80; RESP 17; TEMP 36.7; O2SAT 92
[2023-09-05 05:40] LABS: Sodium 135 mmol/L (136-145)
[2023-09-05 05:41] LABS: Anion Gap 19.3 (5-19); Blood Urea Nitrogen 10 mg/dL (8-23); Carbon Dioxide 20 mmol/L (22-29); Chloride 100 mmol/L (98-107); Creatinine Clr Calc Pharmacy 105.2509; Glucose 121 mg/dL (65-115); Osmolality Calculated 280 mOsm/kg (285-295); Potassium 4.3 mmol/L (3.5-5.1)
[2023-09-05] MEDS: ceFAZolin 2,000 mg SDV 2000 MG IVP (06:02)
[2023-09-05 06:19] LABS: Basophils % 0.1 %; Hematocrit 36.2 % (36-47); Lymphocytes # 1.7 10^3/uL (0.8-4.8); Mean Corpuscular HGB Conc 31.8 g/dL (30-55); Mean Corpuscular Hemoglobin 32.3 pg (27-33); Mean Corpuscular Volume 101.7 fl (85-98); Mean Platelet Volume 10.2 fL (7.4-10.4); Monocytes # 0.9 10^3/uL (0.2-0.9); Monocytes % 6.7 %; Neutrophils # 10.63 10^3/uL (1.8-7.7); Neutrophils % 79.7 %; Nucleated Red Blood Cells % 0 %; Platelet Count 306 10^3/cmm (157-399); Red Blood Count 3.56 10^6/uL (3.85-5.65); Red Cell Distribution Width 13.9 % (12.1-15.1); White Blood Count 13.35 10^3/uL (3.29-11.43)
[2023-09-05 07:48] VITALS: BP 144/80; PULSE 88; RESP 16; TEMP 36.7; O2SAT 94
[2023-09-05 09:10] VITALS: PULSE 81; RESP 18; O2SAT 96
[2023-09-05] MEDS: sennosides-docusate Tablet 2 TAB PO (09:30)
[2023-09-05] MEDS: fluoxetine 10 mg Capsule PO (09:30)
[2023-09-05] MEDS: iron polysaccharide complex 150 mg Capsule PO (09:30)
[2023-09-05] MEDS: calcium carbonate 500 mg Chew Tablet 1000 MG PO (09:30)
[2023-09-05] MEDS: lisinopril 20 mg Tablet PO (09:30)
[2023-09-05] MEDS: cholecalciferol (vitamin D3) 1,000 unit Tablet 1000 UNIT PO (09:30)
[2023-09-05] MEDS: multivitamin therapeutic Tablet 1 TAB PO (09:30)
[2023-09-05] MEDS: aspirin 325 mg EC Tablet PO (09:30)
[2023-09-05] MEDS: buPROPion SR (12 HR) 100 mg Tablet PO (09:30)
[2023-09-05] MEDS: mupirocin oint 22 gm 1 APPLIC NASAL (09:30)
[2023-09-05] MEDS: chlorhexidine gluconate 0.12% Btl 473 mL 30 ML MUCOUS MEM (09:30)
[2023-09-05 11:29] VITALS: BP 119/75; PULSE 84; RESP 16; TEMP 36.7; O2SAT 96
--- NOTE | 2023-09-05 13:36 | P.DS_ITS ---
Discharge Providers Date of Admission: 09/04/23 09:59 Date of Discharge: September 05, 2023 Attending Provider at Admission: Dina Martinez MD Attending Provider at Discharge: Dina Martinez MD Primary Care Provider: Dante Berry MD Diagnoses at Discharge Discharge Diagnosis (1) Primary osteoarthritis of right knee: Status: Chronic (2) Status post total right knee replacement not using cement: Status: Acute Permanent problem details: Date of procedure: September 04, 2023 Diagnosis: Degenerative osteoarthritis of the right knee with slight varus deformity and slight hyperextension Procedure done: Right total knee arthroplasty with Barney guidance Implants: The EmergentDetection total knee system with a size 4 triathlon beaded cruciate retaining femur right, a triathlon Tritanium tibial baseplate size 4, a triathlon X3 tibial bearing CS insert size 4 X 9 mm and a triathlon tritanium X3 asymmetric patella size 32 x 10 mm Reason for Visit Reason for Visit: M17.11 Brief History: This 63-year-old woman presents today for right total knee arthroplasty. The patient was seen preoperatively and states that she was having significant limitations in her activities of daily living. Patient had cortisone and viscosupplementation injections, and they stopped being of any benefit for her. Having exhausted appropriate conservative therapies, the patient wished to proceed with operative intervention. She was noted to have a meniscus tear, but this was degenerative in nature. In addition to the injections, she had also tried oral anti-inflammatories, bracing, activity modification, and weight loss. None of these were of benefit. In the office, consents were signed and questions were answered. The patient was scheduled for the above procedure. Hospital Course Hospital Course Patient was admitted under observation status following the surgical procedure. She tolerated the procedure well. She was admitted to the floor and underwent physical therapy which she tolerated well. She was able to straight leg raise, but she did have some foot drop postoperatively. Sensory was intact. O therwise, she had no evidence of DVT. Dressing was dry and intact. She will follow-up with me as scheduled in the office. Physical Exam Const: COMMON NORMALS: no acute distress, average body habitus, patient oriented x3 and alert GENERAL APPEARANCE: cooperative and comfortable ORIENTATION/CONSCIOUSNESS: Yes awake HENMT: COMMON NORMALS: normocephalic and atraumatic HEAD & SCALP: normocephalic and atraumatic Eye: GENERAL EYE: appearance normal, both eyes and all related structures Chest: COMMONS NORMALS: normal inspection of the chest Resp: COMMON NORMALS: normal respiratory effort EFFORT & INSPECTION: Yes able to speak in complete sentences and Yes symmetric chest movement Extremity: RIGHT LOWER EXTREMITY: Yes knee joint (Large outer dressing is removed) Right knee: Yes inspection (No significant swelling), Yes ROM (Able to straight leg raise.) and Yes neurovascular exam (Intact sensory, but foot drop is present.) Neuro: COMMON NORMALS: patient oriented x3 SENSORIUM/ORIENTATION: Yes alert Psych: COMMON NORMALS: mental status grossly normal APPEARANCE: Yes grossly normal ATTITUDE: Yes calm and Yes engaged ATTENTION/CONCENTRATION: Yes attention grossly intact Skin: COMMON NORMALS: no rashes or lesions noted GENERAL SKIN EXAM: no rashes or lesions noted Urinary Catheter Management: Whaley: Cath Placed During This Visit: yes, but has since been removed by the nurse Reason for Continuing Indwelling Catheter: Perioperative Use in Selected Surgeries Date Urinary Catheter Removed: 09/05/23 Time Urinary Catheter Discontinued: 06:30 Discharge Data Studies Completed and Pending Completed Studies During Hospitalization Category Date Time Status XR knee RT 1-2V 12287 Urgent Exams 09/04/23 10:00 Completed Radiology Impressions Knee X-Ray 09/04/23 10:00 IMPRESSION: 1. Postoperative changes status post right knee replacement Laboratory Results WBC 13.35 10^3/uL (3.29-11.43) H 09/05/23 05:59 Corrected WBC Cancelled 09/05/23 04:30 RBC 3.56 10^6/uL (3.85-5.65) L 09/05/23 05:59 Hgb 11.50 g/dL (11.27-16.99) 09/05/23 05:59 Hct 36.2 % (36-47) 09/05/23 05:59 MCV 101.7 fl (85-98) H 09/05/23 05:59 MCH 32.3 pg (27-33) 09/05/23 05:59 MCHC 31.8 g/dL (30-55) 09/05/23 05:59 RDW 13.9 % (12.1-15.1) 09/05/23 05:59 Plt Count 306 10^3/cmm (157-399) 09/05/23 05:59 MPV 10.2 fL (7.4-10.4) 09/05/23 05:59 Gran % Cancelled 09/05/23 04:30 Neut % (Auto) 79.7 % 09/05/23 05:59 Lymph % (Auto) 13.0 % 09/05/23 05:59 [place] % (Auto) 6.7 % 09/05/23 05:59 Eos % (Auto) 0.0 % 09/05/23 05:59 Baso % (Auto) 0.1 % 09/05/23 05:59 Neut # (Auto) 10.63 10^3/uL (1.8-7.7) H 09/05/23 05:59 Lymph # (Auto) 1.7 10^3/uL (0.8-4.8) 09/05/23 05:59 [place] # (Auto) 0.9 10^3/uL (0.2-0.9) 09/05/23 05:59 Eos # (Auto) 0.0 10^3/uL (0.0-0.8) 09/05/23 05:59 Baso # (Auto) 0.0 10^3/uL (0.0-0.1) 09/05/23 05:59 Absolute Gran (auto) Cancelled 09/05/23 04:30 Nucleated RBC % (auto) 0 % 09/05/23 05:59 Nucleated RBCs # 0.0 /100WBC 09/05/23 05:59 Sodium 135 mmol/L (136-145) L 09/05/23 04:30 Potassium 4.3 mmol/L (3.5-5.1) 09/05/23 04:30 Chloride 100 mmol/L (98-107) 09/05/23 04:30 Carbon Dioxide 20 mmol/L (22-29) L 09/05/23 04:30 Anion Gap 19.3 (5-19) H 09/05/23 04:30 BUN 10 mg/dL (8-23) 09/05/23 04:30 Creatinine 0.6 mg/dL (0.5-0.9) 09/05/23 04:30 GFR Calculation 101.0 mL/min (90-130) 09/05/23 04:30 Glucose 121 mg/dL (65-115) H 09/05/23 04:30 Calculated Osmolality 280 mOsm/kg (285-295) L 09/05/23 04:30 Calcium 9.0 mg/dL (8.5-10.5) 09/05/23 04:30 Vitals Last Vital Signs Temp 98.1 F 09/05/23 11:29 Pulse 84 09/05/23 11:29 Resp 16 09/05/23 11:29 BP 119/75 09/05/23 11:29 Pulse Ox 96 09/05/23 11:29 O2 Del Method Room Air 09/05/23 11:29 O2 Flow Rate 2 09/05/23 09:10 Discharge Plan Discharge Patient Disposition: Home Health Service Condition: Stable Prescriptions: New acetaminophen 500 mg Tablet 1,000 mg PO Q8H 15 Days Qty: 90 0RF aspirin 325 mg Tablet,Delayed Release (Dr/Ec) 325 mg PO DAILY 30 Days Qty: 0 0RF hydrocodone-acetaminophen 10-325 mg Tablet 1 tab PO Q4H PRN (Reason: Moderate Pain) 7 Days Qty: 40 0RF Continued acetaminophen [Acetaminophen Extra Strength] 500 mg tablet 500 mg PO Q6H PRN (Reason: Pain) (DME) hinge brace See Rx Instructions .Route .MEDSUPPLY Qty: 1 0RF Rx Instructions: As directed fluoxetine [Prozac] 10 mg capsule 10 mg PO DAILY alprazolam 0.25 mg tablet 0.25 mg PO BID PRN (Reason: Anxiety) bupropion HCl 100 mg tablet 100 mg PO DAILY lisinopril 20 mg tablet 20 mg PO DAILY albuterol sulfate [Ventolin HFA] 90 mcg/actuation Hfa Aerosol Inhaler 2 inh INHALATION QID PRN (Reason: Shortness Of Breath) Discharge Orders: Discharge Order (Routine); Ordered 09/05/23 Ordered By: Dina Martinez Referrals: Dina Martinez MD [Physician] - 09/24/23 10:15 am Discharge Diet: Advance as tolerated and Usual diet Discharge Activity: Increase activity as tolerated, Limit activity as instructed, Use walker/crutches as instructed and As per PT/OT instructions Patient Instructions: Acetaminophen (By mouth), Hydrocodone/Acetaminophen (By mouth), Aspirin (By mouth), Acute Wound Care (DC), Total Knee Replacement (DC), Post Anesthesia Care Activity Restrictions/Additional Instructions: Ice and elevation to right knee. Range of motion, gait training, and ambulation per physical therapy. You may shower once the large outer dressing is off, and you may remove the clear plastic dressing at the 2-week point or sooner if it is lifting up. Do not soak your leg in standing water such as bath. Also, do not go in the river or into a pool. Discharge Attestations Time Spent in Discharge Care*: greater than 30 min Specific Discharge Activities: educating patient, documenting/other paperwork and evaluating patient/reviewing data Quality Metrics Clinical Quality Measures [ No reported AMI, CVA or VTE this stay] Coding Level of Care Code Acute Code for Chg Fwd Diagnoses Primary osteoarthritis of right knee M17.11 Status post total right knee replacement not using cement Z96.651
[2023-09-05 15:26] VITALS: BP 119/75; PULSE 84; RESP 16; TEMP 36.7; O2SAT 96
== END 2023-09-05 15:35 | disposition home health service (06) ==
LOC: MEDSURG 10:00
PROVIDERS: Admitting Provider Specialist; PCP Internal Medicine; Visit Provider Specialist
PROC: 8E0Y0CZ Robotic Assisted Procedure of Lower Extremity, Open Approach (ICD-10-PCS; CPT 27447; principal; 2023-09-04 07:00)
DX: M17.11 Unilateral primary osteoarthritis, right knee (principal); M21.161 Varus deformity, not elsewhere classified, right knee; J44.9 Chronic obstructive pulmonary disease, unspecified; E66.01 Morbid (severe) obesity due to excess calories; Z68.34 Body mass index [BMI] 34.0-34.9, adult; I10 Essential (primary) hypertension; F17.200 Nicotine dependence, unspecified, uncomplicated
CPT/HCPCS: 20985; 27447; 36415; 73560; 80048; 85025; 97110; 97116; 97161; 97165; C1776; C9290; G0378; J0131; J0690; J1100; J2795; J3370; J3490; J7030

== ENCOUNTER → 2023-09-11 13:38 | Outpatient (BNVA) | payer MEDICARE, MEDICAID, SELFPAY | PROVIDERS: PCP Internal Medicine; Visit Provider Podiatrist Foot & Ankle Surgery | DX: M20.42 Other hammer toe(s) (acquired), left foot (principal); M79.672 Pain in left foot | CPT/HCPCS: 99213 ==

== ENCOUNTER → 2023-09-24 10:26 | Outpatient (BNVA) | payer MEDICARE, MEDICAID, SELFPAY | PROVIDERS: PCP Internal Medicine; Visit Provider Specialist | DX: Z96.651 Presence of right artificial knee joint (principal) | CPT/HCPCS: 73560; 73565; 99024 ==

== ENCOUNTER 2023-10-01 11:33 | Outpatient (RCR) | payer MEDICARE, MEDICAID, SELFPAY | END 2023-10-18 23:59 | disposition home or self-care (01) | LOC: SPT 11:33 | PROVIDERS: Visit Provider Specialist | DX: Z47.1 Aftercare following joint replacement surgery (principal); Z96.651 Presence of right artificial knee joint | CPT/HCPCS: 97110; 97161 ==

== ENCOUNTER 2023-10-19 06:00 | Outpatient (RCR) | payer MEDICARE, MEDICAID, SELFPAY | END 2023-11-17 23:59 | disposition home or self-care (01) | LOC: SPT 06:00 | PROVIDERS: Visit Provider Specialist | DX: Z47.1 Aftercare following joint replacement surgery (principal); Z96.651 Presence of right artificial knee joint | CPT/HCPCS: 97110 ==

== ENCOUNTER 2023-11-18 06:00 | Outpatient (RCR) | payer MEDICARE, MEDICAID, SELFPAY | END 2023-12-18 23:59 | disposition home or self-care (01) | LOC: SPT 06:00 | PROVIDERS: Visit Provider Specialist | DX: Z47.1 Aftercare following joint replacement surgery (principal); Z96.651 Presence of right artificial knee joint | CPT/HCPCS: 97110 ==

== ENCOUNTER → 2023-11-19 14:38 | Outpatient (BNVA) | payer MEDICARE, MEDICAID, SELFPAY | PROVIDERS: Visit Provider Specialist | DX: Z96.651 Presence of right artificial knee joint (principal) | CPT/HCPCS: 73560; 73565; 99024 ==

== ENCOUNTER 2023-11-27 14:47 | Outpatient (CLI) | payer MEDICARE, MEDICAID, SELFPAY ==
--- NOTE | 2023-11-27 15:00 | USR_ITS ---
PROCEDURE INFORMATION: Exam: US Soft Tissue Head and Neck, TI-RADS Exam date and time: 11/27/2023 3:03 PM Age: 63 years old Clinical indication: Dysphagia / difficulty swallowing; Additional info: R13.10 - dysphagia, unspecified TECHNIQUE: Imaging protocol: Real-time ultrasound scan of the neck with image documentation. Exam focused on the thyroid. COMPARISON: US thyroid [id number] 03/31/2023 3:18 PM FINDINGS: Right thyroid lobe: Not enlarged. Left thyroid lobe: Not enlarged. Isthmus: Not thickened. LESION 1: Thyroid nodule 1 Size: 0.7 cm Thyroid nodule 1 Location: Inferior right thyroid lobe Thyroid nodule 1 Composition: Solid Thyroid nodule 1 Echogenicity: Hypoechoic Thyroid nodule 1 Shape: Wider than taller Thyroid nodule 1 Margins: Ill-defined Thyroid nodule 1 Echogenic foci: No Thyroid nodule 1 Points: 3 Lymph nodes: No enlarged nodes. US/US thyroid [id number] IMPRESSION: Inferior right thyroid lobe subcentimeter nodule with TI-RADS 3 imaging characteristics. No FNA or follow-up recommended.
== END 2023-11-27 14:48 | disposition home or self-care (01) ==
LOC: RAD 14:48
PROVIDERS: Visit Provider Internal Medicine
DX: E04.1 Nontoxic single thyroid nodule (principal); R13.10 Dysphagia, unspecified
CPT/HCPCS: 76536

== ENCOUNTER → 2023-12-10 13:52 | Outpatient (BNVA) | payer MEDICARE, MEDICAID, SELFPAY | PROVIDERS: Visit Provider Podiatrist Foot & Ankle Surgery | DX: M20.42 Other hammer toe(s) (acquired), left foot (principal); M79.672 Pain in left foot | CPT/HCPCS: 99213 ==

== ENCOUNTER → 2023-12-25 10:36 | Outpatient (BNVA) | payer MEDICARE, MEDICAID, SELFPAY | PROVIDERS: Visit Provider Podiatrist Foot & Ankle Surgery | DX: M20.42 Other hammer toe(s) (acquired), left foot (principal); M79.672 Pain in left foot; Z01.818 Encounter for other preprocedural examination; S92.352A Displaced fracture of fifth metatarsal bone, left foot, initial encounter for closed fracture; X58.XXXA Exposure to other specified factors, initial encounter | CPT/HCPCS: 73630; 99213 ==

== ENCOUNTER → 2024-01-05 14:29 | Outpatient (BNVA) | payer MEDICARE, MEDICAID, SELFPAY | PROVIDERS: Visit Provider Podiatrist Foot & Ankle Surgery | DX: M79.671 Pain in right foot (principal); M79.672 Pain in left foot; S92.355G Nondisplaced fracture of fifth metatarsal bone, left foot, subsequent encounter for fracture with delayed healing; Q74.2 Other congenital malformations of lower limb(s), including pelvic girdle; G57.62 Lesion of plantar nerve, left lower limb; M24.575 Contracture, left foot; X58.XXXD Exposure to other specified factors, subsequent encounter | CPT/HCPCS: 73630; 99214 ==

== ENCOUNTER 2024-01-09 06:53 | Day surgery (SDC) | payer MEDICARE, MEDICAID, SELFPAY ==
[2024-01-09] VITALS (7 sets, daily range): BP systolic 115–177; BP diastolic 67–93; PULSE 82–92; RESP 16–18; TEMP 36.1–36.5; O2SAT 95–97
--- NOTE | 2024-01-09 | XR_ITS ---
WS: [id number] C-ARM RADIOGRAPHS LEFT FOOT; 2 IMAGES HISTORY: HARRIS PICS COMPARISON: None available. C-arm imaging during plate and screw fixation across the fifth metatarsal fracture. XR/XR foot LT min 3V* [id number] IMPRESSION: Intraoperative imaging during fixation at the fifth metatarsal.
--- NOTE | 2024-01-09 07:31 | ANES.PREANE2 ---
Pre-Anesthetic Assessment Height/Weight: Height 1.63 m Weight 86.183 kg Temp Pulse Resp BP Pulse Ox O2 Del Method 97.0 F L 92 18 177/93 97 Room Air 01/09/24 07:08 01/09/24 07:08 01/09/24 07:08 01/09/24 07:08 01/09/24 07:08 01/09/24 07:30 Preop Diagnosis: Fifth metatarsal fracture, tailor's bunion and left hammertoes Operation Date: 01/09/24 08:30 Proposed Procedures p Deep tendon transfer left foot(Left) - Oliverio Aguilar DPM s ORIF left fifth metatarsal fracture(Left) - SUNNY Lee Hammertoe Correction Left second and Left third(Left) - Oliverio Aguilar DPM Familial anesthetic complications: ponv Was Beta Luis Enrique taken within 24 hours: N/A Was Clonidine taken within 24 hours: N/A Last intake: Intake Last Liquid Date 01/08/24 Last Liquid Time 23:00 Last Solid Date 01/08/24 Last Solid Time 21:00 Social Tobacco and No alcohol Exam alert, oriented x 3, clear to auscultation bilaterally and regular rate & rhythm Airway Mallampati: Class III Dentition: false Pulmonary Asthma, Chronic Obstructive Pulmonary Disease and Sleep Apnea CV/HEM Hypertension Metabolic Morbid Obesity Anesthetic Plan ASA status: 3 Anesthesia: MAC Other Pertinent Information alpha gal Medications/Allergies Home Medications Medication Instructions Recorded Confirmed Last Taken Type acetaminophen 500 mg tablet 500 mg PO Q6H PRN Pain 06/28/19 01/08/24 01/08/24 History (Acetaminophen Extra Strength) fluoxetine 10 mg capsule (Prozac) 10 mg PO DAILY 07/11/21 01/08/24 01/07/24 History hinge brace #1 ea 01/31/23 01/05/24 Unknown Rx lisinopril 20 mg tablet 20 mg PO DAILY 05/08/23 01/08/24 01/08/24 History bupropion HCl 100 mg tablet 100 mg PO DAILY 08/27/23 01/08/24 01/09/24 History albuterol sulfate 90 mcg/actuation 2 inh inhalation QID PRN Shortness 09/03/23 01/08/24 09/02/23 History aerosol inhaler (Ventolin HFA) Of Breath cyclobenzaprine 10 mg tablet 10 mg PO BEDTIME 01/08/24 01/08/24 01/07/24 History Allergies Allergy/AdvReac Type Severity Reaction Status Date / Time NSAIDS (Non-Steroidal Allergy Intermediate ADR-Gastrointestinal Verified 01/05/24 14:44 Anti-Inflamma Upset Alpha-Gal Allergy ADR-Gastrointestinal Verified 01/05/24 14:44 (Iesqpnldj-Xbxmd-7,3-Gala Upset sumatriptan [From Imitrex] Allergy ALGY-Difficulty Verified 01/05/24 14:44 Breathing trazodone Allergy ALGY-Difficulty Verified 01/05/24 14:44 Breathing PFSH Anesthesia Medical History Perianal abscess C. difficile colitis Sleep apnea COPD (chronic obstructive pulmonary disease) Asthma Hypertension Surgical History S/P oophorectomy History of knee surgery History of shoulder surgery History of cholecystectomy History of hysterectomy History of tubal ligation History of colonoscopy (08/03/19) Family History Other Anesthesia complication Bleeding disorder Social History Smoking and tobacco/nicotine status: current every day tobacco/nicotine user Alcohol intake: never Substance/Drug Use: never Lives independently: Yes Housing: House Marital status: Legally Data Anesthesia Cardiac Studies: No Data to Display
[2024-01-09] MEDS: sodium chloride 0.9% 1,000 ML 30 ML IV (07:32)
--- NOTE | 2024-01-09 08:55 | W.PM.OPSUD ---
Surgery/Procedure H&P Update DATE OF PROCEDURE: January 09, 2024 DATE H&P PERFORMED: 01/05/24 H&P UPDATE INFORMATION: I have reviewed H&P completed within last 30 days, I have examined patient prior to procedure, No changes to prior documentation and H&P is in [facility] [place] [facility] EMR on date indicated PREOP DIAGNOSIS: Fifth metatarsal fracture, tailor's bunion and left hammertoes PLANNED PROCEDURE: Operation Date: 01/09/24 08:30 Proposed Procedures p Deep tendon transfer left foot(Left) - Oliverio Aguilar DPM s ORIF left fifth metatarsal fracture(Left) - SUNNY Lee Hammertoe Correction Left second and Left third(Left) - Oliverio Aguilar DPM
[2024-01-09] MEDS: ceFAZolin 2,000 mg SDV 2000 MG IVP (08:58)
[2024-01-09] MEDS: BUPivacaine 0.25% INJ 30 mL 15 ML INJECTION (09:29)
[2024-01-09] MEDS: lidocaine 1% 10 ML INJ 15 ML XX (09:29)
--- NOTE | 2024-01-09 10:08 | P.BOP_ITS ---
Date of Procedure: 05/02/23 Surgeon: Oliverio Aguilar DPM Production Assembly Supervisor(s): Devon Procedure(s) performed: Deep tendon transfer left foot, left second and third hammertoe correction, cortisone injection left third intermetatarsal space for Gu's neuroma, left tailor's bunionectomy, left fifth metatarsal ORIF. Findings of the procedure(s): None Estimated blood loss: 2 mL Specimen(s) removed: None Post-operative diagnosis: Contracture left foot, hammertoe deformities second and third toe left foot, Gu's neuroma left third intermetatarsal space, left tailor's bunion, left fifth metatarsal fracture.
--- NOTE | 2024-01-09 10:09 | P.OP_ITS ---
Operative Report Date of procedure: January 09, 2024 Pre-op diagnosis: Contracture left foot M24.575 Hammertoe of left foot M20.42 Left foot pain M79.672 Closed displaced fracture of fifth metatarsal bone of left foot, initial encounter S92.352A Post-op diagnosis: Contracture left foot M24.575 Hammertoe of left foot M20.42 Left foot pain M79.672 Closed displaced fracture of fifth metatarsal bone of left foot, initial encounter S92.352A Procedure done: 1) deep tendon transfer left foot. CPT code 95595 2) open reduction internal fixation left fifth metatarsal fracture. CPT code 60658 3) Left second hammertoe correction. CPT code 19939 4) left third hammertoe correction. CPT code 84803 Implants: [place] 2.75 mm hammer tube 10 degree angle x 2, [place] 6-hole straight plate with locking 2.0 millimeter screws, 3-0 Vicryl, 4-0 Vicryl, 4-0 nylon Specimens removed/disposition: No micro specimens Pathology: No pathology Surgeon: Oliverio Aguilar DPM [employer] Machine Operator: Devon Estimated blood loss: 2 mL 41 minutes IV fluids: See intraoperative documentation Urine output: None Complications: No complications Findings: See procedure Brief History: Failed conservative treatment of left tailor's bunion, hammertoes and has subacute fifth metatarsal fracture that is symptomatic as well as Gu's neuroma. Planning on outpatient surgery this upcoming Friday consisting of second and third hammertoe correction, tendon transfer, tailor's bunionectomy, ORIF of fifth metatarsal and cortisone injection left third intermetatarsal space. I reviewed at length with the patient, the risks, potential complications, benefits, alternatives, expectations, and typical outcomes associated with the surgery. The risks and potential complications were explained in detail, including but not limited to infection, wound dehiscence or soft tissue complications, bleeding and hematoma, chronic edema, neuritis or nerve damage producing numbness or chronic pain, CRPS, failure to relieve pain or worsening pain, thick / painful / unsightly scar, limited motion / stiffness, malposition, delayed union, malunion, or nonunion, fracture, reaction to implants, anesthetic complications, venous thromboembolism, and deformity recurrence. I discussed the notion of no regrets with the patient as it pertains to complications and outcomes. The patient seemed to understand the nature of the proposed care and required convalescence. They asked appropriate questions, answered to their satisfaction. They are aware no guarantees can be made as to a satisfactory outcome and they understand there may be other possible unforeseen complications or outcomes not listed here that will be treated accordingly if they arise. There were no written or implied guarantees given to the patient. They gave informed consent to proceed. X-ray shows increased fourth metatarsal angle left foot with prominent lateral aspect of fifth metatarsal head, hammertoe contracture 2 and 3 and subacute fracture with delayed healing left fifth metatarsal diaphysis. Procedure: Under mild sedation the patient was brought to the operating room and remained on the gurney in supine position. A timeout was performed. Anesthesia was then administered by the anesthesia service. Local anesthesia injected by myself consisting of 20 cc of 0.5% Marcaine in a left second ray block left third ray block and left reverse Key block fashion with an additional 20 cc of Exparel subcutaneously in a grid like fashion at the dorsal left foot per manufacture recommendation and technique. Well-padded pneumatic tourniquet was applied to the right ankle. The right lower extremity was scrubbed, prepped and draped utilizing normal aseptic technique. Left foot was then exanguinated with an Esmarch bandage and tourniquet inflated to 250 mmHg. Attention was directed to the left forefoot where deep tendon contracture was appreciated with sagittal plane dominant deformity of the left second toe as well as arthrosis of the left second proximal interphalangeal joint. A linear longitudinal incision made over the dorsal aspect of the left second toe through skin with a #15 blade with dissection carried down to extensor tendon which was transected at the level of the proximal interphalangeal joint and dissected proximally and temporary by a mosquito hemostat. The head and base of the left second proximal interphalangeal joint were resected with a oscillating saw pad about the field. Sharp dissection carried down to the flexor digitorum longus tendon which was transected at its most distal margin and split longitudinally and then transferred both medially laterally and hemisections fashion and transferred to the dorsal aspect of the left second toe which was then held in rectus and tendon was reapproximated utilizing 4-0 nylon helping to reduce the sagittal plane deformity at the left second toe and to help prevent cock-up toe deformity. The incision was irrigated with saline solution. Attention was directed at arthrodesis site of the proximal interphalangeal joint left second toe where subchondral drilling was performed at the proximal phalanx head and intermediate phalanx base. Next utilizing manufacture technique technique a [place] 2.75 mm hammer tube 10 degree angle was placed intramedullary within the proximal portion of the intermediate phalanx and and distal portion of the proximal phalanx of the left second toe holding this rectus and allowing excellent compression at the proximal interphalangeal joint arthrodesis site excellent placement of hardware and rectus left second toe was appreciated both intraoperatively under direct visualization as well as with AP, oblique and lateral views noted to be excellent in all 3 planes with the second metatarsal plantar joint not being violated. Smooth range of motion appreciated at the left second metatarsal phalangeal joint. The incision was then flushed with copious amounts of sterile saline solution and the extensor tendon was reapproximated utilizing 4-0 Vicryl. Subcutaneous tissue closed with 4-0 Vicryl and skin with 4-0 nylon. Attention was directed at arthrodesis site of the proximal interphalangeal joint left third toe where subchondral drilling was performed at the proximal phalanx head and intermediate phalanx base. Next utilizing manufacture technique technique a [place] 2.75 mm hammer tube 10 degree angle was placed intramedullary within the proximal portion of the intermediate phalanx and and distal portion of the proximal phalanx of the left third toe holding this rectus and allowing excellent compression at the proximal interphalangeal joint arthrodesis site excellent placement of hardware and rectus left third toe was appreciated both intraoperatively under direct visualization as well as with AP, oblique and lateral views noted to be excellent in all 3 planes with the third metatarsal plantar joint not being violated. Smooth range of motion appreciated at the left third metatarsal phalangeal joint. The incision was then flushed with copious amounts of sterile saline solution and the extensor tendon was reapproximated utilizing 4-0 Vicryl. Subcutaneous tissue closed with 4-0 Vicryl and skin with 4-0 nylon. Attention was then directed to the left lateral forefoot directly over the left fifth metatarsal where a linear longitudinal incision was made through skin with dissection carried down through subcutaneous tissue to the layer of fracture and periosteum of the left fifth metatarsal diaphysis with care taken to retract and preserve neurovascular and tendinous structures. All bleeders were ligated and cauterized as necessary. Fracture was curettaged of his hematoma and fixated dorsally with excellent bony apposition and compression noted utilizing standard AO technique with a [place] 6-hole straight plate with 2 mm locking screws with excellent bony apposition and compression noted. Incision was irrigated with saline solution, confirmation of placement noted to be excellent in all 3 planes utilizing intraoperative C arm in AP, oblique and lateral views without violating adjacent structures or joints. All incisions were then dressed with Adaptic, sterile 4 x 4's, Kerlix and Prasanna wrap followed by application of a cam boot. Tourniquet was deflated and a prompt hyperemic response was noted to the distal digits of the left foot. Patient tolerated the procedure and anesthesia well and was transferred to the PACU with vital signs stable and vascular status intact. Following a period of postoperative monitoring she will be discharged home was given at home care instructions and scheduled follow-up she is also given my cell phone number to contact me directly with any postoperative questions or concerns.
--- NOTE | 2024-01-09 11:00 | ANE.PACU2 ---
Inpatient post-anesthesia follow up: Airway intact: Yes Vital signs: Temperature 97.3 F Pulse Rate 82 Respiratory Rate 18 Blood Pressure 136/83 Pulse Oximetry 95 Oxygen Delivery Me thod Room Air Oxygen Flow Rate Fraction of Inspir ed Oxygen Hydration adequate: Yes Nausea and vomiting: No Pain level: 1 Mental status: Baseline
== END 2024-01-09 11:04 | disposition home or self-care (01) ==
PROVIDERS: Visit Provider Podiatrist Foot & Ankle Surgery
PROC: (CPT 27691; principal; 2024-01-09 08:30)
PROC: (CPT 28485; 2024-01-09 08:30)
PROC: (CPT 28285; 2024-01-09 08:30)
DX: M24.575 Contracture, left foot (principal); M20.42 Other hammer toe(s) (acquired), left foot; S92.352A Displaced fracture of fifth metatarsal bone, left foot, initial encounter for closed fracture; X58.XXXA Exposure to other specified factors, initial encounter; J44.9 Chronic obstructive pulmonary disease, unspecified; G47.30 Sleep apnea, unspecified; I10 Essential (primary) hypertension; E66.01 Morbid (severe) obesity due to excess calories; Z68.32 Body mass index [BMI] 32.0-32.9, adult; F17.200 Nicotine dependence, unspecified, uncomplicated
CPT/HCPCS: 27691; 28285 ×2; 28485; 73630; 76000; C1713; J0131; J0690; J1100; J2704; J3010; J3490; J7030

== ENCOUNTER → 2024-01-14 11:45 | Outpatient (BNVA) | payer MEDICARE, MEDICAID, SELFPAY | PROVIDERS: Visit Provider Internal Medicine | DX: E04.1 Nontoxic single thyroid nodule (principal); R13.10 Dysphagia, unspecified | CPT/HCPCS: 99213; 99214 ==

== ENCOUNTER → 2024-01-22 14:18 | Outpatient (BNVA) | payer MEDICARE, MEDICAID, SELFPAY | PROVIDERS: PCP Family Medicine; Visit Provider Podiatrist Foot & Ankle Surgery | DX: Z98.890 Other specified postprocedural states (principal); M79.672 Pain in left foot | CPT/HCPCS: 73630; 99024 ==

== ENCOUNTER → 2024-02-19 14:43 | Outpatient (BNVA) | payer MEDICARE, MEDICAID, SELFPAY | PROVIDERS: PCP Family Medicine; Referring Provider Podiatrist Foot & Ankle Surgery; Visit Provider Podiatrist Foot & Ankle Surgery | DX: Z98.890 Other specified postprocedural states (principal) | CPT/HCPCS: 73630; 99024 ==

== ENCOUNTER → 2024-03-18 13:08 | Outpatient (BNVA) | payer MEDICARE, MEDICAID, SELFPAY | PROVIDERS: PCP Family Medicine; Visit Provider Podiatrist Foot & Ankle Surgery | DX: Z98.890 Other specified postprocedural states (principal) | CPT/HCPCS: 73630; 99024 ==

== ENCOUNTER → 2024-03-22 13:50 | Outpatient (BNVA) | payer MEDICARE, MEDICAID, SELFPAY | PROVIDERS: PCP Family Medicine; Visit Provider Family Medicine | DX: Z00.00 Encounter for general adult medical examination without abnormal findings (principal); Z13.6 Encounter for screening for cardiovascular disorders | CPT/HCPCS: 80053; 80061 ==

== ENCOUNTER 2024-05-01 22:05 | Emergency (ER) | payer MEDICARE, MEDICAID, SELFPAY ==
[2024-05-01 22:14] VITALS: BP 167/73; PULSE 103; RESP 18; TEMP 36.6; O2SAT 96
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
[2024-05-01] MEDS: ondansetron 4 MG Tablet PO (23:55)
[2024-05-01] MEDS: HYDROcodone-acetaminophen 5-325 mg Tablet 1 TAB PO (23:55)
[2024-05-01 23:56] VITALS: BP 172/91; PULSE 92; RESP 16; O2SAT 98
[2024-05-02 01:09] VITALS: BP 142/90; PULSE 89; O2SAT 96
== END 2024-05-02 01:18 | disposition home or self-care (01) ==
PROVIDERS: Emergency Provider Nurse Practitioner; PCP Family Medicine
DX: S00.03XA Contusion of scalp, initial encounter (principal); M62.838 Other muscle spasm; M54.50 Low back pain, unspecified; F17.210 Nicotine dependence, cigarettes, uncomplicated; J44.9 Chronic obstructive pulmonary disease, unspecified; I10 Essential (primary) hypertension; V09.9XXA Pedestrian injured in unspecified transport accident, initial encounter
CPT/HCPCS: 70450; 72125; 72131; 72170; 99284; J9999; Q0162

== ENCOUNTER → 2024-05-26 09:55 | Outpatient (BNVA) | payer MEDICARE, SELFPAY | PROVIDERS: PCP Family Medicine; Visit Provider Specialist | DX: Z96.651 Presence of right artificial knee joint (principal); Z98.890 Other specified postprocedural states | CPT/HCPCS: 73560; 73565; 99213 ==

== ENCOUNTER → 2024-09-18 14:18 | Outpatient (BNVA) | payer MEDICARE, SELFPAY | PROVIDERS: PCP Family Medicine; Visit Provider Registered Nurse Neonatal Intensive Care | DX: R19.7 Diarrhea, unspecified (principal) | CPT/HCPCS: 87045; 87427; 87449; 87493 ==

== ENCOUNTER 2024-12-22 12:54 | Outpatient (CLI) | payer MEDICARE, SELFPAY ==
--- NOTE | 2024-12-22 12:59 | MM_ITS ---
WS: [id number] BILATERAL 3D TOMOSYNTHESIS DIGITAL SCREENING MAMMOGRAPHY WITH CAD CLINICAL INFORMATION: SCREENING MAMMOGRAM HISTORY: Screening mammogram. No current complaints. COMPARISON: 2022 TECHNIQUE: Bilateral CC and MLO views. FINDINGS: Scattered fibroglandular densities bilaterally. No suspicious focal mass, asymmetry, calcifications, or architectural distortion. No evidence of malignancy. MM/MM scr tomosynthesis [id number] IMPRESSION: DENSITY: There are scattered areas of fibroglandular density. BI-RADS: 1 - Negative. FOLLOW UP: 1 Year Follow-up Recommend return to annual screening mammography.
== END 2024-12-22 12:55 | disposition home or self-care (01) ==
LOC: RAD 12:55
PROVIDERS: PCP Family Medicine; Visit Provider Family Medicine
DX: Z12.31 Encounter for screening mammogram for malignant neoplasm of breast (principal); R92.323 Mammographic fibroglandular density, bilateral breasts
CPT/HCPCS: 77063; 77067